=== PATIENT | female | born 1985 | race Caucasian/White ===

== ENCOUNTER 2024-01-12 10:10 | Outpatient (OUT) | payer BC, SELFPAY ==
--- NOTE | 2024-01-12 10:22 | XR_ITS ---
[address] [address] Patient Name: MARIJA LOPEZ MRN: [id number] date: 1985 Sex: F Assigned Patient Location: LAB Current Patient Location: LAB Accession/Order Number: [id number] Exam Date: 01/12/2024 10:16 Report Date: 01/12/2024 11:08 At the request of: WENDI OCAMPO Procedure: XR chest 2V EXAM: XR chest 2V HISTORY: Acute Cough R05.1 COMPARISON: None. TECHNIQUE: PA and lateral views of the chest. FINDINGS: The cardiomediastinal silhouette is normal. No focal consolidation is identified. There is no pneumothorax. No pleural effusion is noted. The osseous structures are intact. XR/XR chest 2V IMPRESSION: No acute cardiopulmonary process. Electronically authenticated by: STEVE PERRY Date: 01/12/2024 11:08
== END 2024-01-12 10:11 | disposition home or self-care (01) ==
LOC: LAB 10:11
PROVIDERS: PCP Family Medicine; Visit Provider Family Medicine
DX: R05.1 Acute cough (principal)
CPT/HCPCS: 71046

== ENCOUNTER 2025-03-14 19:50 | Outpatient (REF) | payer BC, SELFPAY ==
[2025-03-17 23:08] LABS: Age Gdln ACOG Testing Note (.); HPV Aptima Negative (Negative); IGP, Aptima HPV, rfx 16/18,45 Note (.)
== END 2025-03-14 19:51 | disposition home or self-care (01) ==
LOC: LAB 19:50
PROVIDERS: PCP Family Medicine; Visit Provider Obstetrics & Gynecology
DX: Z01.419 Encounter for gynecological examination (general) (routine) without abnormal findings (principal)
CPT/HCPCS: 87624; 88175

== ENCOUNTER 2025-09-13 08:21 | Outpatient (OUT) | payer BC, SELFPAY ==
--- OUTSIDE RECORDS SUMMARY | 2024-07-14 05:00 | XMS_ITS ---
Author Organization [facility] in [place] Address [address] [place] [address] Care Team Providers Care Scenic Designer Name Role Phone David Tello Primary Care Provider Katarzyna Figueroa Unavailable [phone] REASON FOR VISIT 2 week follow up Encounters Encounter Location Date Provider Diagnosis [facility] (PODIATRY) [address] [place] [address] [place] [address] 07/14/2024 Katarzyna Figueroa Plan Of Treatment No Information Progress Notes * Cecile LOPEZ BDOB:[birth year] (39 yo F)Acc No.[id number]:07/14/2024 UNLOCKED PROGRESS NOTE Follow Up Patient: Cecile LAMAS :?SHELBI JarrellCDOB:1985???Age:38 Y ???Sex:FemaleDate:07/14/2024hone:[phone]:[id number] [id number]:David Tello Subjective: * Chief Complaints: * 1 . 2 week follow up. * Medical History: Objective: * Vitals: Assessment: Plan: * Treatment: * * Electronic signature of Katarzyna Figueroa PA-C on 09/13/2025 at 08:24 AM EDTSign off status: PendingVisit Status:?CANC (Cancelled) * Provider: Yong Figueroa PA-C Date: 0 07/14/2024 Generated for Printing/Faxing/eTransmitting on:?09/13/2025 08:24 AM EDT
--- OUTSIDE RECORDS SUMMARY | 2025-09-11 10:30 | XMS_ITS | Encounter Summary ---
Author Organization [facility] Address [address] [place] [address] Care Team Providers Care Hansard Reporter Name Role Phone Nathen Tello MD Primary Care Provider [phone] Reason for Visit * ReasonCommentsSuspicious Skin Lesion Encounter Details DateTypeDepartmentCare Team (Latest Contact Info)Bppdgpplqey98/20/2025 10:30 AM EDTOffice Visit [facility] [address] [facility] [address] [place] [address] Laina Tristan PA [address] [facility] [address] [place] [address] Neoplasm of unspecified behavior of bone, soft tissue, and skin (Primary Dx); Inflamed seborrheic keratosis Social History Tobacco UseTypesPacks/DayYears UsedDateSmoking Tobacco: FormerCigarettes Smokeless Tobacco: NeverAlcohol UseStandard Drinks/WeekCommentsYes0 (1 standard drink = 0.6 oz pure alcohol)occasionalCommentsNoSex and Gender InformationValueDate RecordedSex Assigned at WooawVthxtl97/23/2023 11:07 AM EDT Legal VdeDzjhjp84/15/2023 11:34 PM EDTGender CfzvpcpuZihgzi46/23/2023 11:07 AM EDTSexual QbhxpcrgfcsKfusovto18/23/2023 11:07 AM EDTdocumented as of this encounter Progress Notes * DARIN Saeed - 09/11/2025 10:30 AM EDT Images from the original note were not included. Lesions: Location: face Duration: years Quality: itchy Associated symptoms: non-healing Treatments: none Established patient All pertinent medical history, medications, and allergies were reviewed. General Exam: alert, oriented to person, place, and time, normal affect, well appearing Unaccompanied A focused exam completed based on patient reported problems, see below: Skin Exam 1. INFLAMED SEBORRHEIC KERATOSIS (3) Left Anterior Neck, Left Parotid Area, Left Submandibular Area Revere and brown stuck on verrucous scaly papule with surrounding erythema The patient was informed that symptomatic seborrheic keratoses are benign growths that become inflamed, itchy, tender, traumatized, caught on clothing, or bleed. Symptomatic lesions can be treated with cryotherapy or curretage. Thicker lesions treated with cryotherapy may require more than one treatment. The patient was instructed to notify the office if abnormal redness or tenderness develops atthe treatment site. Cryotherapy today, see procedure note. Diagnosis: Inflamed seborrheic keratosis Indication: Inflamed Consent: Verbal consent was obtained and risks were discussed, including, but not limited to risks of scarring, darker or intake coordinator pigmentary changes, recurrence, incomplete removal and infection. Method: Liquid nitrogen was used to treat the lesion(s) with two 5-10 second freeze-thaw cycles Number of lesions treated: 3 Post-procedure instructions: Instructions were given orally and in writing. The office will be contacted if the lesion fails to resolve despite treatment, or if a side effect develops such as abnormal crusting, scabbing, redness or tenderness - Cryotherapy, skin lesion - Left Anterior Neck, Left Parotid Area, Left Submandibular Area 2. NEOPLASM OF UNSPECIFIED BEHAVIOR OF BONE, SOFT TISSUE, AND SKIN Right Anterior Lobule Pigmented papule - Lesion biopsy Type of biopsy: tangential Informed consent: discussed and consent obtained Informed consent comment: The risks and benefits of the biopsy were discussed. Risks include but are not limited to bleeding, infection, scarring, pain, and nerve damage. An opportunity to ask questions prior to the procedure was permitted and all questions were answered. Patient was prepped and draped in usual sterile fashion: area cleansed with alcohol. Anesthesia: the lesion was anesthetized in a standard fashion Anesthetic: 1% lidocaine w/ epinephrine 1-100,000 buffered w/ 8.4% NaHCO3 Instrument used: DermaBlade Hemostasis achieved with: electrodesiccation Outcome: patient tolerated procedure well Outcome comment: The specimen was placed in a prelabeled formalin container to be sent for pathology Post-procedure details: sterile dressing applied and wound care instructions given Post-procedure details comment: Emphasized need to contact clinic for any signs of infection, uncontrollable bleeding, or complications. Dressing type: bandage Additional details: Photo taken Amount of lidocaine used: 0.5 cc Specimen A - Dermatopathology exam Differential Diagnosis: Inflamed IDN Check Margins: No Size of lesion: 0.5 x 0.5 cm Diagnosis: (D49.2) Neoplasm of unspecified behavior of bone, soft tissue, and skin Plan: Lesion biopsy Biopsy today, see procedure note. Next Visit: prn for any new/changing lesions documented in this encounter Plan of Treatment NameTypePriorityAssociated DiagnosesOrder ScheduleDermatopathology examPathology and CytologyTimed Neoplasm of unspecified behavior of bone, soft tissue, and skin Release Upon Ordering for 1 Occurrences starting 09/11/2025documented as of this encounter Procedures Procedure NamePriorityDate/TimeAssociated DiagnosisCommentsSKIN / NAIL BIOPSY Rmcikac2309/11/2025 10:40 AM EDT Neoplasm of unspecified behavior of bone, soft tissue, and skin CRYOTHERAPY SKIN YDRLEMYjgucng48/20/2025 10:38 AM EDT Inflamed seborrheic keratosis documented in this encounter Results * Lesion biopsy (09/11/2025 10:40 AM EDT) Narrative Ariana Weiner MA - 09/11/2025 10:40 AM EDT Type of biopsy: tangential Informed consent: discussed and consent obtained ?? Informed consent comment: ??The risks and benefits of the biopsy were discussed. Risks include but are not limited to bleeding, infection, scarring, pain, and nerve damage. An opportunity to ask questions prior to the procedure was permitted and all questions were answered. Patient was prepped and draped in usual sterile fashion: area cleansed with alcohol. Anesthesia: the lesion was anesthetized in a standard fashion ?? Anesthetic: ??1% lidocaine w/ epinephrine 1-100,000 buffered w/ 8.4% NaHCO3 Instrument used: DermaBlade ?? Hemostasis achieved with: electrodesiccation ?? Outcome: patient tolerated procedure well ?? Outcome comment: ??The specimen was placed in a prelabeled formalin container to be sent for pathology Post-procedure details: sterile dressing applied and wound care instructions given ?? Post-procedure details comment: ??Emphasized need to contact clinic for any signs of infection, uncontrollable bleeding, or complications. Dressing type: bandage ?? Additional details: ??Photo taken Amount of lidocaine used: 0.5 cc Authorizing ProviderResult TypeResult [facility] PROCEDURE ORDERABLESFinal Result * Cryotherapy, skin lesion (09/11/2025 10:38 AM EDT) Narrative Authorizing ProviderResult TypeResult [facility] PROCEDURE ORDERABLESFinal Result documented in this encounter Visit Diagnoses Diagnosis Neoplasm of unspecified behavior of bone, soft tissue, and skin- Primary Inflamed seborrheic keratosis documented in this encounter Care Teams Team MemberRelationshipSpecialtyStart DateEnd Date Nathen Tello MD [address] [place] [address] PCP - GeneralFamily Medicine04/20/25documented as of this encounter
--- OUTSIDE RECORDS SUMMARY | 2025-09-13 08:23 | XMS_ITS | CCD ---
Author Organization [facility] CliniSyma Care Team Providers Care Bakelite Molder Name Role Phone CYNDEE ., DR ZAPATA Consulting Unavailable CYNDEE ., DR ZAPATA Attending Unavailable HOY ., DR ADAME Primary Care Unavailable CYNDEE ., DR ZAPATA Admitting Unavailable IRMA II, OLI Consulting Unavailable GLADYS CABALLERO Consulting Unavailable CYNDEE ., DR ZAPATA Admitting Unavailable CYNDEE ., DR ZAPATA Attending Unavailable HOY ., DR ADAME Primary Care Unavailable CYNDEE ., DR ZAPATA Consulting Unavailable HOY ., DR ADAME Primary Care Unavailable CYNDEE ., DR ZAPATA Attending Unavailable CYNDEE ., DR ZAPATA Consulting Unavailable CYNDEE ., DR ZAPATA Admitting Unavailable YCNDEE ., DR ZAPATA Attending Unavailable CYNDEE ., DR ZAPATA Consulting Unavailable HOY ., DR ADAME Primary Care Unavailable CYNDEE ., DR ZAPATA Admitting Unavailable CYNDEE ., DR ZAPATA Attending Unavailable CYNDEE ., DR ZAPATA Consulting Unavailable HOY ., DR ADAME Primary Care Unavailable CYNDEE ., DR ZAPATA Admitting Unavailable CYNDEE ., DR ZAPATA Attending Unavailable CYNDEE ., DR ZAPATA Consulting Unavailable HOY ., DR ADAME Primary Care Unavailable CYNDEE ., DR ZAPATA Admitting Unavailable ZIEBER, DR EULA Mcelroy Consulting Unavailable CYNDEE ., DR ZAPATA Attending Unavailable KENAI, DR PEPE Sheets Consulting Unavailable HOY ., DR ADAME Primary Care Unavailable CYNDEE ., DR ZAPATA Admitting Unavailable NO FAMILY, PHYSICIAN Primary Care Provider Unava ilable Karla Koehler APRN Attending Provider Karla Koehler Attending Unavailable Karla Koehler Admitting Unavailable NO FAMILY, PHYSICIAN Primary Care Unavailable Wendi Tello MD Primary Care Provider [phone] Oli Barahona MD Primary Care Provider Wendi Tello MD Primary Care Provider [phone] Wendi Tello MD Primary Care Provider [phone] ELSY GARZA Attending BENNY Mittal Attending Unavailable ELSY GARZA Attending ARLETH Abreu Attending Unavailable Allergies Allergy ClassificationReported Allergen(s)Allergy TypeDate of OnsetReaction(s) Facility (1 source)AzithromycinDrug Jxvalzi34-58-2587[facility] ([facility] source)AzithromycinDrug Glmqowb45-09-1026LmnqldoarAultman Alliance Community Hospital Repository (11 sources)AzithromycinDrug Ztnpffx14-16-5041RP bleeding, UnknownINTERMOUNTAIN HEALTHCARE Healthcare Work Phone: Medications Current Medications MedicationDrug Class(es)DatesSig (Normalized)Sig (Original)ALPRAZolam 0.25 mg oral tablet (13 sources)BenzodiazepineStart: 26-55-6391tfaj 1 tablet by mouth in the morning, then take 1 tablet by mouth in the evening, then take 1 tablet by mouth at bedtimeALPRAZolam (Xanax) 0.25 MG tablet Indications: Anxiety and depression Take 1 tablet (0.25 mg) by mouth in the morning and 1 tablet (0.25 mg) in the evening and 1 tablet (0.25 mg) before bedtime. 30 tablet 09/04/2023 Wcqdbk23 hr buPROPion hydrochloride 150 mg extended release oral tablet (11 sources)AminoketoneStart: 38-59-8223vvJWJBetm SR (Wellbutrin SR) 150 MG 12 hr tablet Indications: Anxiety and depression Take 1 tablet (150 mg) by mouth in the morning and 1 tablet (150 mg) before bedtime. Take 1 tablet daily for 3 days , then take 1 tablet daily for 4 days. Quit smoking on day 7 and continue to take medication twice daily.. 180 tablet 1 09/04/2023 ActiveBupropion Hcl 150 mg tablet sustained-release 12 hr (2 sources)Start: 56-52-9661cvsg 1 tablet by mouth twice dailyBupropion Hcl 150 mg tablet sustained-release 12 hr Active 150 MG PO Twice daily October 0120231124:00amdoxycycline hyclate 50 mg oral capsule (2 sources)Tetracycline-class DrugStart: 04-20-2025 End: 83-57-9904ekoquozrylo (Vibramycin) 50 MG capsule Indications: Ingrown toenail , Right foot pain Take 2 capsules (100 mg) by mouth in the morning and 2 capsules (100 mg) before bedtime. Do all this for 5 days. Take with at least 8 ounces (large glass) of water, do not lie down for 30 minutes after. 20 capsule 04/20/2025 04/25/2025 ActivemetFORMIN hydrochloride 500 mg oral tablet (3 sources)Biguanide End: 41-28-9945rudLBLPVM (Glucophage) 500 MG tablet 500 mg in the morning. Take with meals. 03/14/2025 Discontinued (Discontinued by another clinician) pramipexole dihydrochloride 1 mg oral tablet (16 sources)Nonergot Dopamine AgonistStart: 37-12-5580xpbq 1 tablet by mouth once dailyPramipexole 1 mg tablet Active 1 MG PO Daily October 01, 2024 12:00am End: 84-13-7342utgcfqyfljo (Mirapex) 0.125 MG tablet 03/14/2025 Discontinued (Discontinued by another clinician) Problems Active Problems Problem ClassificationProblemDateDocumented DateEpisodic/ChronicAnxiety disorders (2 sources)Mixed anxiety and depressive disorder; Translations: [Anxiety disorder, unspecified]24-22-9389EgaqpilNoobgvamwmbrf and procreative management (1 source)Presence of (intrauterine) contraceptive device; Translations: [PRESENCE IU CONTRACEPT DEVICE]Onset: 91-37-0821JcvpxymtMvhyxvztugiyg congenital anomalies (1 source)Unicornate uterus; 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]Onset: 04-21-2023 ChronicInflammatory diseases of female pelvic organs (1 source)Inflammatory disease of cervix uteri; Translations: [INFLAMMATORY DISEASE CERVIX UTERI]Onset: 19-70-4149DxjxwrstHjxyyymkx disorders (6 sources)Irregular menstruation, unspecified; Translations: [Dysmenorrhea, unspecified]Onset: 53-97-4421LszeuilKyxfefqhd of unspecified nature or uncertain behavior (1 source)Neoplastic disease; Translations: [Neoplasm of unspecified behavior of bone, soft tissue, and skin]58-00-5562XcivolhbBbbfr connective tissue disease (4 sources)Pain in right foot; Translations: [Pain in right foot]03-14-2025 EpisodicOther female genital disorders (1 source)Unspecified dyspareunia; Translations: [UNSPECIFIED DYSPAREUNIA]Onset: 33-98-5874KhslyijPfyqn hereditary and degenerative nervous system conditions (4 sources)Restless legs syndrome; Translations: [RESTLESS LEGS SYNDROME]Onset: 07-69-0050VrgiuerWejoq lower respiratory disease (2 sources)Cough; Translations: [Cough]91-77-6531KbmrysfdBaclv screening for suspected conditions (not mental disorders or infectious disease) (6 sources)Encounter for screening for malignant neoplasm of cervix; Translations: [Patient encounter status]Onset: 86-52-7628AtwumcmkJkfzn skin disorders (4 sources)Ingrowing toenail; Translations: [Ingrowing nail]69-23-8071Kjlvfrwk Other skin disorders (1 source)Inflamed seborrheic keratosis; Translations: [Inflamed seborrheic keratosis]83-94-8261GfafgenrLjzznbwnb and history of mental health and substance abuse codes (1 source)Personal history of nicotine dependence; Translations: [PERSONAL HISTORY OF NICOTINE DEPEND]Onset: 31-73-4486SihbyxrhBlbccklhpzap (1 source)Cough, unspecified; Translations: [Cough, unspecified]Onset: 85-34-4370Kjuzo infection (4 sources)Disease caused by 2019-nCoV; Translations: [COVID-19]10-01-2024 Episodic Past or Other Problems Problem ClassificationProblemDateDocumented DateEpisodic/ChronicImmunizations and screening for infectious disease (1 source)Encounter for screening for human papillomavirus (HPV); Translations: [ENC SCREENING HUMAN PAPILLOMAVIRUS]Onset: 76-96-3433LsepyirqInmyg nutritional; endocrine; and metabolic disorders (1 source)Abnormal weight gain; Translations: [ABNORMAL WEIGHT GAIN]Onset: 40-82-6547HepxvmyzGskujbb cyst (2 sources)Other ovarian cyst, left side; Translations: [Other ovarian cyst, right side]Onset: 47-38-5692BmdehrkuQjbqupwz codes; unclassified (1 source)Sleep disorder, unspecified; Translations: [SLEEP DISORDER UNSPECIFIED]Onset: 83-19-2779Cddkgxhy Results Test NameValueInterpretationReference RangeFacilityCryotherapy, skin lesion Ordered By: Ariana Weiner on 82-23-5916LNVZMethodist [facility] biopsyon 09-11-2025 Type of biopsy: tangential Informed consent: discussed [...] Photo taken Amount of lidocaine used: 0.5 [facility] HealthIGP,APTIMA HPV,AGE GDLNon 55-95-3932VAE GDLN ACOG TESTINGNote.NOMS HealthcareComment on above:TESTS RESULT FLAG UNITS REF RANGE LAB Clinician Provided Cytology Information Source.............Vagina No. of containers..01 ThinPrep Vial Age Algo ACOG Valarie... 28 FLAG LEGEND: L-Low Normal,H-High Normal,LL-Alert Low,HH-Alert High <-Panic Low,>-Panic High,A-Abnormal,AA-Critical Abnormal Performed at: 01 =[address] [phone] Jaqueline Vila MD, HPV APTIMANegativeNegativeNOMS HealthcareComment on above:This nucleic acid amplification test detects fourteen high- risk HPV types (16,18,31,33,35,39,45,51,52,56,58,59,66,68) without differentiation. Performed at: =[address] [id number] Cage Maker: Jaqueline Vila MD, Phone: [phone] Performed at: [address] [id number] Cage Maker: Jaqueline Vila MD, Phone: [phone] IGP, APTIMA HPV, RFX 16/18,45Note.NOMS HealthcareComment on above:TESTS RESULT FLAG UNITS REF RANGE LAB DIAGNOSIS: 02 NEGATIVE FOR INTRAEPITHELIAL LESION OR MALIGNANCY. Specimen adequacy: 02 Satisfactory for evaluation. Performed by: 02 [place], Ear Pull Machine Operator (ASCP) . 02 Note: Note 02 The Pap smear is a screening test designed to aid in the detection of premalignant and malignant conditions of the uterine cervix. It is not a diagnostic procedure and should not be used as the sole means of detecting cervical cancer. Both false-positive and false-negative reports do occur. Test Methodology: Note 02 This liquid based ThinPrep(R) pap test was screened with the use of an image guided system. HPV Genotype Reflex Note 02 Criteria not met, HPV Genotype not performed. FLAG LEGEND: L-Low Normal,H-High Normal,LL-Alert Low,HH-Alert High <-Panic Low,>-Panic High,A-Abnormal,AA-Critical Abnormal Performed at: [address] [facility] [address] [phone] Jaqueline Vila MD, [facility] CLINISYNCNOMS HealthcareCOVID Cepheidon 13-39-0089OTIH-CoV-2 (COVID-19) RNA MATEO+probe Ql (Unsp spec)COVID CepheidAultman Alliance Community HospitalLaboratory - Microbiology and Antimicrobial susceptibilityon 22-44-6662TYCS-CoV-2 (COVID- 19) RNA MATEO+probe Ql (Unsp spec)PositiveAultman Alliance Community HospitalNo Panel Informationon 37-35-3692QEP Influenza A (PCR)NegativeAultman Alliance Community HospitalPO Influenza B (PCR)NegativeAultman Alliance Community HospitalX- ray reportOrdered By: Jairon Butler on 30-87-0452Zbeuz reportBLUFFTON [place] [address] XRay Report Signed Patient: Cecile Torres MR#: [id number] : 1985 Acct:[id number] Age/Sex: 38 / F ADM Date: 4 Loc: XDUCLY Room: Type: [facility] Attending Dr: Karla Koehler APRN Copies to: Karla Koehler APRN~ Ordering Provider: Karla Koehler APRN Date of Service: 10/01/24 XR/XR chest 2V*: COUGH XR chest 2V* 10/01/2024 12:27 PM SIGNS AND SYMPTOMS: Dry cough, low-grade fever, chest congestion PROTOCOL: Frontal and lateral radiograph of the chest COMPARISON: None FINDINGS: The trachea is midline. The heart and mediastinal structures are within normal limits. The lung parenchyma is clear. The bony thorax is intact. There is a dextro convex curvature of the thoracic spine. XR/XR chest 2V* IMPRESSION: No acute cardiopulmonary pathology. Impression dictated by: Jairon Butler M.D.10/01/2024 12:40 PM Dictation Location: [facility]--17 Transcribed By: NISREEN 10/01/24 1240 Dictated By: Jairon Butler II, MD 10/01/24 1239 Signed By: 10/01/24 1240 [facility] Work Phone: XR chest 2V*on 03-43-3512CH chest 2V*[facility] Main [facility] [address] [place] [address] XRay Report Signed Patient: Cecile Torres MR#: [id number] : 1985 Acct:[id number] Age/Sex: 38 / F ADM Date: 10/01/24 [facility] Room: Type: [facility] Attending Dr: Karla Koehler VICE PRESIDENT SAFETY Copies to: Karla Koehler APRN Ordering Provider: Karla Koehler APRN Date of Service: 10/01/24 XR/XR chest 2V*: COUGH XR chest 2V* 10/01/2024 12:27 PM SIGNS AND SYMPTOMS: Dry cough, low-grade fever, chest congestion PROTOCOL: Frontal and lateral radiograph of the chest COMPARISON: None FINDINGS: The trachea is midline. The heart and mediastinal structures are within normal limits. The lung parenchyma is clear. The bony thorax is intact. There is a dextro convex curvature of the thoracic spine. XR/XR chest 2V* IMPRESSION: No acute cardiopulmonary pathology. Impression dictated by: Jairon Butler M.D.10/01/2024 12:40 PM Dictation Location: [facility]-17 Transcribed By: [facility] 10/01/24 1240 Dictated By: Jairon Butler II, MD 10/01/24 1239 Signed By: 10/01/24 [facility] Physician GroupBUAdelina 22-90-8658Cegy nitrogen [Mass/Vol]4.0 mg/dLCritically low7.0-18.0The [facility] Md, Cancer CenterComment on above: Performed By: #### CREA, BUN #### [facility] Laboratory [address] [address] [address] Kylee Allen AUTO DIFFon 72-22-2355ZYVZ #0.0 103/ulNormal0.0-0.1The [facility], Md, Cancer CenterComment on above:Performed By: #### [id number] #### [facility] [address] [address] [address] Kylee GarnerBasophils/100 WBC (Bld)0.4 %Normal0.2-2.0The [facility] Comment on above:Performed By: #### [id number] #### [facility] [address] [address] [address] Kylee Valle #0.1 103/ulNormal0.0-0.7The [facility] Md, Cancer CenterComment on above: Performed By: #### [id number] #### [facility] [address] [address] [address] Kylee Ballesterososinophils/100 WBC (Bld)1.8 %Normal0.9-7.0The [facility] Comment on above:Performed By: #### [id number] #### [facility] [address] [address] [address] Kylee Ballesterosrythrocyte distribution width (RBC) [Ratio]12.9 %Cobeju94.0-15.0 The [facility] Md, Cancer CenterComment on above:Performed By: #### [id number] #### [facility] [address] [place] [address] Dr. Kylee GarnerHematocrit (Bld) [Volume fraction]28.9 %Critically low36.0-48.0 The Washington HospitalComment on above:Performed By: #### [id number] #### [facility] [address] [place] [address] Dr. Kylee GarnerHemoglobin (Bld) [Mass/Vol]9.5 g/dLCritically low12.0-16.0The [facility], Cancer CenterComment on above:Performed By: #### [id number] #### [facility] [address] [place] [address] Dr. Kylee Brandon #0.02 10e3/ulNormal0.00-0.03The [facility], Cancer CenterComment on above:Performed By: #### [id number] #### [facility] [address] [place] [address] Dr. Kylee Brandon %0.3 %Normal0.0-0.5The [facility], Cancer CenterComment on above: Performed By: #### [id number] #### [facility] [address] [place] [address] Dr. Kylee Nova #1.9 103/ulNormal1.2-3.8The [facility], Cancer CenterComment on above:Performed By: #### [id number] #### [facility] [address] [place] [address] Dr. Kylee Mcdowellhocytes/100 WBC (Bld)23.2 %Uysdjl19.5-60.0The [facility], Cancer CenterComment on above:Performed By: #### [id number] #### [facility] [address] [place] [address] Dr. Kylee HoangUAL DIFF REQNONormalThe [facility], Cancer CenterComment on above: Performed By: #### [id number] #### [facility] [address] [place] [address] Dr. Kylee Walls (RBC) [Entitic mass]30.3 afTqpium39.7-34.0The [facility], Cancer CenterComment on above:Performed By: #### [id number] #### [facility] [address] [place] [address] Dr. Kylee Gamboa (RBC) [Mass/Vol]32.9 g/xVPhhzxo66.9-35.2The [facility], Cancer CenterComment on above:Performed By: #### [id number] #### [facility] [address] [place] [address] Dr. Kylee Giordano (RBC) [Entitic vol]92.0 uEQbnkxe46.0-99.0The [facility], Cancer CenterComment on above:Performed By: #### [id number] #### [facility] [address] [place] [address] Dr. Kylee Tristan #0.6 103/ulNormal0.3-0.8The [facility] Md, Cancer CenterComment on above:Performed By: #### [id number] #### [facility] [address] [place] [address] Dr. Kylee Franklinocytes/100 WBC (Bld)7.3 %Normal1.7-12.0The [facility] Comment on above:Performed By: #### [id number] #### [facility] [address] [place] [address] Dr. Kylee Osborne #5.4 103/ulNormal1.4-6.5The [facility], Cancer CenterComment on above:Performed By: #### [id number] #### [facility] [address] [place] [address] Dr. Kylee Vidalutrophils/100 WBC (Bld)67.0 %Ynybgy59.0-75.0The [facility], Cancer CenterComment on above:Performed By: #### [id number] #### [facility] [address] [place] [address] Dr. Kylee Ariaslet mean volume (Bld) [Entitic vol]10.0 fLNormal9.5-13.5The [facility]ron Campusment on above:Performed By: #### [id number] #### [facility] [address] [place] [address] Dr. Kylee GarnerPLT172 103/yhFeckst848-590Miz [facility], [facility] CenterComment on above: Performed By: #### [id number] #### [facility] [address] [address] [address] Kylee GarnerRBC3.14 106/ulCritically low4.20-5.40[facility] on above:Performed By: #### [id number] #### [facility] [address] [address] [address] Kylee GarnerWBC8.0 103/ulNormal4.0-11.0The [facility], Cancer CenterComment on above: Performed By: #### [id number] #### [facility] [address] [place] [address] Dr. Kylee GarnerCREATININEon 78-80-3384Tgcxejjgbd [Mass/Vol]0.80 mg/dLNormal 0.55-1.02The [facility] on above:Performed By: #### CREA, BUN #### [facility] [address] [place] [address] Dr. Pichardo ChangEGFR-AF SALVADOREAN>60Normal>=60The [facility] on above:Performed By: #### CREA, BUN #### [facility] [address] [place] [address] Dr. Kylee BallesterosGFR-NON AF SALVADOREAN>60Normal>=60The [facility] on above:Performed By: #### CREA, BUN #### [facility] [address] [place] [address] Dr. Kylee GarnerPOINT OF CARE GLUCOSEon 07-54-1135Tchhzxy [Mass/Vol]81 mg/dL Xfxzja07-070Dbs [facility] on above:Performed By: #### POCGLUC #### [facility] [address] [place] [address] Dr. Kylee GarnerPREAleksandar QUANT HCGon 96-98-0509BEN QUANT2 mIU/mLNormalToledo HospitalCommunson healthcare [facility] on above:Performed By: #### ESTRADI #### [facility] [address] [place] [address] Dr. Kylee Edge RANGESEE BELOWNoalThe [facility], Md, Cancer CenterComment on above: Result Comment: 5-50 0.2-1 WEEK 50-500 1-2 WEEKS 100-5,000 2-3 WEEKS 500-10,000 3-4 WEEKS 1,000-50,000 4-5 WEEKS 10,000-100,000 5-6 WEEKS 15,000-200,000 6-8 WEEKS 10,000-100,000 2-3 MONTHSPerformed By: #### ESTRADI #### [facility] [address] [place] [address] Dr. Kylee GarnerTYPE AND SCREENon 11-58-7747AKWA AND SCREENNegativeNormalThTriHealth Bethesda North HospitalComment on above:Performed By: #### [id number] #### [facility] [address] [place] [address] Dr. Kylee GandaraC AUTO DIFFon 39-41-6038SCOI #0.0 103/ulNormal0.0-0.1[facility]edo HospitalComment on above:Performed By: #### ESTRADI #### [facility] [address] [place] [address] Dr. Kylee GarnerBasophils/100 WBC (Bld)0.4 %Normal0.2-2.0[facility] Comment on above:Performed By: #### ESTRADI #### [facility] [address] [place] [address] Dr. Kylee Valle #0.1 103/ulNormal0.0-0.7ThTriHealth Bethesda North HospitalComment on above: Performed By: #### ESTRADI #### [facility] [address] [place] [address] Dr. Kylee Ballesterososinophils/100 WBC (Bld)1.1 %Normal0.9-7.0[facility] Comment on above:Performed By: #### ESTRADI #### [facility] [address] [place] [address] Dr. Kylee Ballesterosrythrocyte distribution width (RBC) [Ratio]12.6 %Ywpibz86.0-15.0 [facility] HospitalComment on above:Performed By: #### ESTRADI #### [facility] [address] [place] [address] Dr. Kylee Pachecoatocrit (Bld) [Volume fraction]37.4 %Dqdfbt06.0-48.0The [facility], Cancer CenterComment on above:Performed By: #### ESTRADI #### [facility] [address] [place] [address] Dr. Kylee GarnerHemoglobin (Bld) [Mass/Vol]12.9 g/kHIofclg48.0-16.0The [facility], Cancer CenterComment on above:Performed By: #### ESTRADI #### [facility] [address] [place] [address] Dr. Kylee Brandon #0.02 10e3/ulNormal0.00-0.03The [facility], Cancer CenterComment on above:Performed By: #### ESTRADI #### [facility] [address] [place] [address] Dr. Kylee Brandon %0.2 %Normal0.0-0.5The [facility], Cancer CenterComment on above: Performed By: #### ESTRADI #### [facility] [address] [place] [address] Dr. Kylee Nova #1.7 103/ulNormal1.2-3.8The [facility], Cancer CenterComment on above:Performed By: #### ESTRADI #### [facility] [address] [place] [address] Dr. Kylee Mcmphocytes/100 WBC (Bld)20.3 %Critically low20.5-60.0The [facility], Cancer CenterComment on above:Performed By: #### ESTRADI #### [facility] [address] [place] [address] Dr. Kylee GarnerMANUAL DIFF REQNONormalThe [facility], Cancer CenterComment on above: Performed By: #### ESTRADI #### [facility] [address] [place] [address] Dr. Kylee Walls (RBC) [Entitic mass]30.8 ygLaeidf54.7-34.0The [facility], Cancer CenterComment on above:Performed By: #### ESTRADI #### [facility] [address] [address] [address] Kylee GamboaHC (RBC) [Mass/Vol]34.5 g/yWVamjnm34.9-35.2The [facility], Cancer CenterComment on above:Performed By: #### ESTRADI #### [facility] [address] [address] [address] Kylee GamboaV (RBC) [Entitic vol]89.3 zOBjmgzs50.0-99.0The [facility] HospitalComment on above:Performed By: #### ESTRADI #### [facility] [address] [place] [address] Dr. Kylee Tristan #0.7 103/ulNormal0.3-0.8The [facility] Md, Cancer CenterComment on above:Performed By: #### ESTRADI #### [facility] [address] [place] [address] Dr. Kylee Franklinocytes/100 WBC (Bld)8.3 %Normal1.7-12.0The [facility] Comment on above:Performed By: #### ESTRADI #### [facility] [address] [place] [address] Dr. Kylee Osborne #5.7 103/ulNormal1.4-6.5The [facility], Cancer CenterComment on above:Performed By: #### ESTRADI #### [facility] [address] [place] [address] Dr. Kylee Vidalutrophils/100 WBC (Bld)69.7 %Ajzkuc95.0-75.0The [facility], Cancer CenterComment on above:Performed By: #### ESTRADI #### [facility] [address] [place] [address] Dr. Kylee Ariaslet mean volume (Bld) [Entitic vol]9.9 fLNormal9.5-13.5The [facility], Cancer CenterComment on above:Performed By: #### ESTRADI #### [facility] [address] [place] [address] Dr. Kylee GarnerPLT229 103/uhVetyfe228-043Nzq [facility] Campusment on above: Performed By: #### ESTRADI #### [facility] [address] [place] [address] Dr. Kylee GarnerRBC4.19 106/ulCritically low4.20-5.40The [facility] Cancer CenterCommunson healthcare [facility] on above:Performed By: #### ESTRADI #### [facility] [address] [place] [address] Dr. Kylee GarnerWBC8.2 103/ulNormal4.0-11.0The [facility], Cancer CenterComment on above: Performed By: #### ESTRADI #### [facility] [address] [place] [address] Dr. Kylee Guidry PROFILEon 32-47-6393Hgyrjvf [Mass/Vol]3.9 g/dLNormal3.4-5.0 The [facility], Cancer CenterComment on above:Performed By: #### [id number] #### [facility] [address] [place] [address] Dr. Kylee GarnerAlbumin/Globulin [Mass ratio]1.1 {ratio}NormalThe [facility] CenterCommunson [facility] on above:Performed By: #### [id number] #### [facility] [address] [place] [address] Dr. Kylee Cardoso [Catalytic activity/Vol]62 U/WCxjuie87-799Con [facility] on above:Performed By: #### [id number] #### [facility] [address] [place] [address] Dr. Kylee Cooley [Catalytic activity/Vol]20 U/FIadvxw48-20Mwz [facility] on above:Performed By: #### [id number] #### [facility] [address] [place] [address] Dr. Kylee Hernandez [Catalytic activity/Vol]14 U/LCritically ldt14-17Hrb [facility] on above:Performed By: #### [id number] #### [facility] [address] [place] [address] Dr. Kylee Corea, CONJUGATED0.1 mg/dLNormal0.0-0.2[facility] Comment on above:Performed By: #### [id number] #### [facility] [address] [place] [address] Dr. Kylee GarnerBilirubin [Mass/Vol]0.4 mg/dLNormal0.2-1.0[facility] Comment on above:Performed By: #### [id number] #### [facility] [address] [place] [address] Dr. Kylee GarnerGlobulin (S) [Mass/Vol]3.7 g/dLNormalThe [facility], Cancer CenterComment on above:Performed By: #### [id number] #### [facility] [address] [place] [address] Dr. Kylee GarnerProtein [Mass/Vol]7.6 g/dLNormal6.4-8.2[facility] Comment on above:Performed By: #### [id number] #### [facility] [address] [place] [address] Dr. Kylee GarnerPROF CHEM 8 (BAS METB)on 45-30-1404Xnloo gap [Moles/Vol]13.5 mmol/LNormalToledo HospitalComment on above:Performed By: #### [id number] #### [facility] [address] [place] [address] Dr. Kylee GarnerCalcium [Mass/Vol]9.0 mg/dLNormal8.5-10.1[facility] Comment on above:Performed By: #### [id number] #### [facility] [address] [place] [address] Dr. Kylee GarnerChloride [Moles/Vol]104 mmol/CRfxydd18-916PavToledo Hospital Comment on above:Performed By: #### [id number] #### [facility] [address] [place] [address] Dr. Kylee GarnerCO2 [Moles/Vol]25.7 mmol/XXpcuku13.0-32.0[facility] Comment on above:Performed By: #### [id number] #### [facility] [address] [address] [address] Kylee GarnerCreatinine [Mass/Vol]0.79 mg/dLNormal0.55-1.02The [facility], Cancer CenterComment on above:Performed By: #### [id number] #### [facility] [address] [address] [address] Kylee BallesterosGFR-AF SALVADOREAN>60Normal>=60The [facility], Cancer CenterComment on above:Performed By: #### [id number] #### [facility] [address] [address] [address] Kylee BallesterosGFR-NON AF SALVADOREAN>60Normal>=60The [facility], Cancer CenterComment on above:Performed By: #### [id number] #### [facility] [address] [place] [address] Dr. Kylee GarnerGlucose [Mass/Vol]81 mg/fAPgccal73-268Ncg [facility] Comment on above:Performed By: #### [id number] #### [facility] [address] [address] [address] Kylee GarnerPotassium [Moles/Vol]4.2 mmol/LNormal3.5-5.1The [facility] Comment on above:Performed By: #### [id number] #### [facility] [address] [place] [address] Dr. Kylee GarnerSodium [Moles/Vol]139 mmol/KTcibnx075-377Gab [facility] Comment on above:Performed By: #### [id number] #### [facility] [address] [address] [address] Kylee GarnerUrea nitrogen [Mass/Vol]11.0 mg/dLNormal7.0-18.0The [facility], Cancer CenterComment on above:Performed By: #### [id number] #### [facility] [address] [address] [address] Kylee GarnerUrea nitrogen/Creatinine [Mass ratio]13.9 mg/mgNormalThe [facility], Cancer CenterComment on above:Performed By: #### [id number] #### [facility] [address] [place] [address] Dr. Kylee SeayIMEon 35-88-5157MOG Coag (PPP) [Relative time]0.94 {INR} NormalThe [facility], Cancer CenterComment on above:Performed By: #### PTT, PT #### [facility] Laboratory [address] [place] [address] Dr. Kylee Sheldon [facility] HEALTH SYSTEMSSEE BELOWPike Community HospitalComment on above:Result Comment: DESIRED INR: 2.0 - 3.0 CONDITIONS NOT LISTED BELOW 2.5 - 3.5 FOR PROSTHETIC HEART VALVE REPLACEMENT 2.5 - 3.5 RECURRENT THROMBOSIS Performed By: #### PTT, PT #### [facility] [address] [place] [address] Dr. Kylee GarnerPT Coag (PPP) [Time]10.0 sNormal9.0-11.6The [facility] Comment on above:Performed By: #### PTT, PT #### [facility] [address] [place] [address] Dr. Kylee Scott 31-39-0843sOJP Coag (Bld) [Time]28.2 nOqduir98.3-36.2[facility] HospitalComment on above:Performed By: #### PTT, PT #### [facility] [address] [place] [address] Dr. Kylee Aden SERUMon 74-15-1768Woxmgletfzeocdkzoqegaa (DHEA)141 ng/dL Szrbyn01-127MkrToledo HospitalComment on above:Result Comment: Age 1 - 5 years 0 - 67 6 - 7 years 0 - 110 8 - 10 years 0 - 185 11 - 12 years 0 - 201 13 - 14 years 0 - 318 15 - 16 years 39 - 481 17 - 19 years 40 - 491 >19 years 31 - 701Performed By: #### ESTRADI #### [facility] [address] [place] [address] Dr. Kylee Tenorio ACOG PANEL 2: 30 to 63on 07-15-2022..NormalThe [facility], Cancer CenterComment on above:Result Comment: Performed at: WBPerformed By: #### [id number] #### [facility] [address] [place] [address] Dr. Kylee GarnerAge Gdln ACOG Qlxwfzh04-80GdmawlZlcPike Community HospitalCommunson healthcare [facility] on above:Performed By: #### [id number] #### [facility] [address] [place] [address] Dr. Kylee GarnerDIAGNOSIS:CommentLima City Hospital on above: Result Comment: NEGATIVE FOR INTRAEPITHELIAL LESION OR MALIGNANCY. Performed at: WBPerformed By: #### [id number] #### [facility] [address] [place] [address] Dr. Kylee GarnerHPV AptimaNegativeNormalNegativeAvita Health System on above:Result Comment: This nucleic acid amplification test detects fourteen high-risk HPV types (16,18,31,33,35,39,45,51,52,56,58,59,66,68) without differentiation. Performed at: =GPerformed By: #### [id number] #### [facility] [address] [place] [address] Dr. Kylee GarnerMethodology:CTIMLima City Hospital on above: Result Comment: The Thin Prep(R) Supervisor [employer] was unable to read this specimen. Therefore a manual review was performed. Performed at: WBPerformed By: #### [id number] #### [facility] [address] [place] [address] Dr. Kylee GarnerNote:CommentLima City Hospital on above:Result Comment: The Pap smear is a screening test designed to aid in the detection of premalignant and malignant conditions of the uterine cervix. It is not a diagnostic procedure and should not be used as the sole means of detecting cervical cancer. Both false-positive and false-negative reports do occur. . Performed at: WBPerformed By: #### [id number] #### [facility] [address] [place] [address] Dr. Kylee GarnerPerformed by:CommentLima City Hospital on above: Result Comment: Ana Rosa Goldberg, Solar Photovoltaic Installer (ASCP) Performed at: WBPerformed By: #### [id number] #### [facility] [address] [address] [address] Kylee Andrewsimejairon adequacy:CommentNormalThe [facility], Cancer CenterComment on above:Result Comment: Satisfactory for evaluation. Endocervical and/or squamous metaplastic cells (endocervical component) are present. Performed at: WBPerformed By: #### [id number] #### [facility] [address] [address] [address] Kylee GarnerUS PELVIS AND TRANSVAGon 66-10-4235CL PELVIS AND TRANSVAG EXAMINATION: US PELVIS AND TRANSVAG HISTORY: Irregular periods COMPARISON: No relevant comparison available. FINDINGS: Transabdominal and transvaginal images The uterus is normal in size, contour and echotexture. Anteflexed, measuring 9.5 x 4.6 x 4.1 cm. The endometrium measures 8 mm, normal. The right ovary measures 3.7 x 2.5 x 2.7 cm. Normal color Doppler flow. Normal resistive index of 0.51. Area of anechoic echogenicity measuring 2.6 x 2.3 x 2.4 cm. The left ovary measures 4.1 x 2.5 2.8 cm. Normal color Doppler flow. Normal resistive index of 0.55. Area of anechoic echogenicity measuring 2.2 x 2.1 x 2.0 cm. No free fluid IMPRESSION: 2.6 cm right and 2.2 cm left ovarian simple cysts Electronically authenticated by: PEPE ROMO Date: 2022-07-13 08:15NormalToledo HospitalDHEA-SULFATEon 56-51-2148GHDB-Efviqsa411.0 ug/dLNormal 57.3-279.2The [facility], Cancer CenterComment on above:Performed By: #### DHEASUL #### [facility] Laboratory [address] [place] [address] Dr. Pichardo ChangESTRADIOLon 25-19-0701Sihjqtrzc860.0 pg/mLNormalToledo HospitalComment on above:Result Comment: Adult Female: Follicular phase 12.5 - 166.0 Ovulation phase 85.8 - 498.0 Luteal phase 43.8 - 211.0 Postmenopausal <6.0 - 54.7 1st trimester 215.0 - >4300.0 Manpreet ECLIA methodologyPerformed By: #### ESTRADI #### [facility] [address] [place] [address] Dr. Kylee Goldman 83-11-6197BCL7.2 mIU/mLNormalToledo HospitalComment on above:Result Comment: Adult Female: Follicular phase 3.5 - 12.5 Ovulation phase 4.7 - 21.5 Luteal phase 1.7 - 7.7 Postmenopausal 25.8 - 134.8Performed By: #### LBCFSH #### [facility] [address] [place] [address] Dr. Kylee GarnerLUTEINIZING HORMONE (LH)on 92-70-6698UD8.6 mIU/mLNormalToledo HospitalComment on above:Result Comment: Adult Female: Follicular phase 2.4 - 12.6 Ovulation phase 14.0 - 95.6 Luteal phase 1.0 - 11.4 Postmenopausal 7.7 - 58.5Performed By: #### ESTRADI #### [facility] [address] [place] [address] Dr. Kylee GarnerPROGESTERONEon 55-78-7867Kmzfmvwdyvke0.2 ng/mLNFlower HospitalComment on above:Result Comment: Follicular phase 0.1 - 0.9 Luteal phase 1.8 - 23.9 Ovulation phase 0.1 - 12.0 First trimester 11.0 - 44.3 Second trimester 25.4 - 83.3 Third trimester 58.7 - 214.0 Postmenopausal 0.0 - 0.1Performed By: #### ESTRADI #### [facility] [address] [place] [address] Dr. Kylee GarnerCALCIUMon 65-69-7893Sfgjvnt [Mass/Vol]9.0 mg/dLNormal8.5-10.1The [facility], Cancer CenterComment on above:Performed By: #### [id number] #### [facility] Laboratory [address] [place] [address] Dr. Kylee GarnerCBC AUTO DIFFon 78-10-9632XEZI #0.0 103/ulNormal0.0-0.1The [facility], Cancer CenterComment on above:Performed By: #### ESTRADI #### [facility] [address] [place] [address] Dr. Kylee GarnerBasophils/100 WBC (Bld)0.4 %Normal0.2-2.0The [facility] Comment on above:Performed By: #### ESTRADI #### [facility] [address] [place] [address] Dr. Kylee Valle #0.1 103/ulNormal0.0-0.7The [facility], Cancer CenterComment on above: Performed By: #### ESTRADI #### [facility] [address] [place] [address] Dr. Kylee Ballesterososinophils/100 WBC (Bld)0.9 %Normal0.9-7.0The [facility] Comment on above:Performed By: #### ESTRADI #### [facility] [address] [place] [address] Dr. Kylee Ballesterosrythrocyte distribution width (RBC) [Ratio]12.7 %Coaqcl43.0-15.0 The [facility], Cancer CenterComment on above:Performed By: #### ESTRADI #### [facility] [address] [place] [address] Dr. Kylee GarnerHematocrit (Bld) [Volume fraction]39.6 %Zwtogy16.0-48.0The [facility], Cancer CenterComment on above:Performed By: #### ESTRADI #### [facility] [address] [place] [address] Dr. Kylee GarnerHemoglobin (Bld) [Mass/Vol]13.2 g/lDVmoorr55.0-16.0The [facility], Cancer CenterComment on above:Performed By: #### ESTRADI #### [facility] [address] [place] [address] Dr. Kylee Brandon #0.03 10e3/ulNormal0.00-0.03The [facility], Cancer CenterComment on above:Performed By: #### ESTRADI #### [facility] [address] [place] [address] Dr. Kylee Brandon %0.3 %Normal0.0-0.5The [facility], Cancer CenterComment on above: Performed By: #### ESTRADI #### [facility] [address] [place] [address] Dr. Kylee Nova #2.5 103/ulNormal1.2-3.8The [facility], Cancer CenterComment on above:Performed By: #### ESTRADI #### [facility] [address] [place] [address] Dr. Kylee Mcdowellhocytes/100 WBC (Bld)25.3 %Wsxges23.5-60.0The [facility] CenterCommunson healthcare [facility] on above:Performed By: #### ESTRADI #### [facility] Laboratory [address] [place] [address] Dr. Kylee HoangUAL DIFF REQNONormalThe [facility], Cancer CenterComment on above: Performed By: #### ESTRADI #### [facility] [address] [place] [address] Dr. Kylee Gamboa (RBC) [Entitic mass]29.6 cvAhfsne36.7-34.0The [facility] CenterCommunson healthcare [facility] on above:Performed By: #### ESTRADI #### [facility] [address] [place] [address] Dr. Kylee Gamboa (RBC) [Mass/Vol]33.3 g/pZEvfvfy83.9-35.2The [facility] CenterCommunson healthcare [facility] on above:Performed By: #### ESTRADI #### [facility] [address] [place] [address] Dr. Kylee Gamboa (RBC) [Entitic vol]88.8 vWYotgti31.0-99.0The [facility] CenterCommunson [facility] on above:Performed By: #### ESTRADI #### [facility] [address] [place] [address] Dr. Kylee Tristan #0.8 103/ulNormal0.3-0.8The [facility], Cancer CenterComment on above:Performed By: #### ESTRADI #### [facility] [address] [address] [address] Kylee Franklinocytes/100 WBC (Bld)8.6 %Normal1.7-12.0The [facility] Comment on above:Performed By: #### ESTRADI #### [facility] [address] [place] [address] Dr. Kylee VidalUT #6.3 103/ulNormal1.4-6.5The [facility], Cancer CenterComment on above:Performed By: #### ESTRADI #### [facility] [address] [place] [address] Dr. Kylee Vidalutrophils/100 WBC (Bld)64.5 %Iqqqse35.0-75.0The [facility], Cancer CenterComment on above:Performed By: #### ESTRADI #### [facility] [address] [place] [address] Dr. Kylee GarnerPlatelet mean volume (Bld) [Entitic vol]10.0 fLNormal9.5-13.5The [facility], Cancer CenterComment on above:Performed By: #### ESTRADI #### [facility] Laboratory [address] [place] [address] Dr. Kylee GarnerPLT271 103/awApequv996-788Mdv [facility] CenterComment on above: Performed By: #### ESTRADI #### [facility] [address] [place] [address] Dr. Kylee GarnerRBC4.46 106/ulNormal4.20-5.40The [facility], Cancer CenterComment on above:Performed By: #### ESTRADI #### [facility] [address] [place] [address] Dr. Kylee GarnerWBC9.8 103/ulNormal4.0-11.0The [facility] CenterCommunson healthcare [facility] on above: Performed By: #### ESTRADI #### [facility] [address] [place] [address] Dr. Pichardo ChangELECTROLYTESon 45-48-9677Msfyr gap [Moles/Vol]7.9 mmol/LNormalThe [facility] Cancer CenterComment on above:Performed By: #### [id number] #### [facility] [address] [address] [address] Kylee GarnerChloride [Moles/Vol]101 mmol/RBazkgk88-793Qai [facility] Comment on above:Performed By: #### [id number] #### [facility] [address] [address] [address] Kylee GarnerCO2 [Moles/Vol]28.8 mmol/AUtobbv33.0-32.0The [facility] Comment on above:Performed By: #### [id number] #### [facility] [address] [address] [address] Kylee GarnerPotassium [Moles/Vol]3.7 mmol/LNormal3.5-5.1The [facility] Comment on above:Performed By: #### [id number] #### [facility] [address] [address] [address] Kylee GarnerSodium [Moles/Vol]134 mmol/LCritically ayt497-609Xja [facility] CenterComment on above:Performed By: #### [id number] #### [facility] [address] [address] [address] Kylee GarnerGLYCOHEMOGLOBIN A1Con 83-18-1328RYO RECOMMENDATIONSEE BELOWNormal [facility] HospitalComment on above:Result Comment: ADA RECOMMENDED LIMIT 4.0 - 6.0 ADA THERAPEUTIC TARGET < 7.0 ACTION SUGGESTED > 7.0Performed By: #### [id number] #### [facility] [address] [address] [address] Kylee GarnerGlucose [Mass/Vol]97 mg/dLNormalThTriHealth Bethesda North HospitalComment on above:Performed By: #### [id number] #### [facility] [address] [address] [address] Kylee GarnerHbA1c (Bld) [Mass fraction]5.0 %Normal4.5-6.2[facility] HospitalComment on above:Performed By: #### [id number] #### [facility] [address] [address] [address] Kylee GarnerMAGNESIUMon 07-15-2546Didmsoamn [Mass/Vol]2.0 mg/dLNormal1.8-2.4 The [facility], Cancer CenterComment on above:Performed By: #### CA, TSH, MG, ELEC #### [facility] [address] [address] [address] Kylee AdornoHojairon 46-79-6098FVT1.725 uIU/mLNormal0.358-3.740The [facility] Cancer CenterComment on above:Performed By: #### [id number] #### [facility] [address] [address] [address] Kylee Garner Vital Signs Date TimeVital SignValuePerforming WicdjpzalCexyohpw76-92-3326 15:24-0400Body mass index (BMI) [Ratio]23.96 kg/j3UxwcfPenguin Computing Work Phone: [phone]-[facility] CenterApfwqfckna24-24-4935 15:24-0400Body movhor62.4 kg BennyPenguin Computing Work Phone: [facility] CenterVrhhtpsjpa15-34-7524 15:24-0400Diastolic blood fwqkfoza57 mm[Hg][employer] ([employer] Work Phone: [facility] CenterQguxmmflqp80-41-4436 15:24-0400Systolic blood eyxyzvwd010 mm[Hg][employer] ([employer]) Work Phone: [facility] CenterZtbmbjnzhb53-23-0861 11:53-0500Body cjsiqz479.18 cmPHYSICIAN [facility]11-09-2024 11:53-0500Body mass index (BMI) [Ratio]23.6 kg/t4AVJGHUUCN [facility]11-09-2024 11:53-0500Body bppetrycwzv30.4 [degF]PHYSICIAN NO [facility]11-09-2024 11:53-0500Body ypliuw31.26 kg PHYSICIAN NO [facility]11-09-2024 11:53-0500 Diastolic blood uhvqgqlk13 mm[Hg]PHYSICIAN NO [facility]11-09-2024 11:53-0500Heart byxq195 /minPHYSICIAN [facility]11-09-2024 11:53-0500Respiratory rate16 /minPHYSICIAN [facility]11-09-2024 11:53-9597KxX3% (BldA) [Mass fraction]94 %PHYSICIAN NO [facility]11-09-2024 11:53-0500Systolic blood geksldwy551 mm[Hg]PHYSICIAN NO [facility] Encounters Encounter DateEncounter TypeCare ProviderFacilityStart: 09-11-2025 End: 97-47-2400Vygpxj flowsNinoska Hernadez PA Work Phone: no [facility]ologyStart: 09-11-2025 End: 57-33-7282Qjteqw flowsheetArleth [facility] PA Work Phone: no[employer] Stefanie DermatologyStart: 09-11-2025 End: 05-43-1518Ohfftmi encounter procedureRyrich [facility] DARIN Work Phone: no[employer] Stefanie DermatologyComment on above:Neoplasm of unspecified behavior of bone, soft tissue, and skin (Primary Dx); Inflamed seborrheic keratosisStart: 09-11-2025 End: 89-98-9403lpnxrrybkaGMYGV NORTHEIMNot AvailableStart: 04-20-2025 End: 13-85-5076Kbijkf flowsheetMokaya Spicer-Beran DPM Work Phone: noms [facility] PODIATRYStart: 04-20-2025 End: 48-70-5433Xstfvn flowsheetMorgan Radha-Beran DPM Work Phone: noms [facility] PODIATRYStart: 04-20-2025 End: 61-29-4853Mulmiw outpatient visit 25 minutesMorbria BlackmonLean-Beran DPM Work Phone: noms [facility] PODIATRYComment on above:Ingrown toenail (Primary Dx); Right foot painStart: 04-20-2025 End: 91-91-5881eqylhipiypSMIBDY RADHA-BERANNot AvailableStart: 03-14-2025 End: 50-48-1522Jlmugms encounter procedureCorey Cyndee DO Work Phone: noms HealthcareStart: 03-14-2025 End: 59-75-9055Ctveysnq preventive med est patient 40-64yrsCorey Cyndee DO Work Phone: noms BCP OBComment on above:Well woman exam with routine gynecological exam; Encounter for screening mammogram for malignant neoplasm of breast; Anxiety and depression ([facility])Start: 03-14-2025 End: 48-88-4366kewggmnzkpGYBVV FAZIONot AvailableStart: 03-14-2025 End: 71-20-6556Zlrxca flowsheetMorgan Radha-Beran DPM Work Phone: noms [facility] PODIATRYStart: 03-14-2025 End: 90-20-9490Etfhtq flowsheetMorgan Radha-Beran DPM Work Phone: noms [facility] PODIATRYStart: 03-14-2025 End: 50-29-9222Cyxrraasd Result EncounterCorey Cyndee DO Work Phone: noms External Department UnsolicitedStart: 03-14-2025 End: 20-54-9967Gqdrsc outpatient new 30 minutesMorgan Radha-Beran DPM Work Phone: noms [facility] PODIATRYComment on above:Ingrown toenail (Primary Dx); Right foot painStart: 03-14-2025 End: 51-63-3991xvhequwsjyZLPXAO RADHA-BERANNot AvailableStart: 10-01-2024 End: 87-39-3331mrrhefeoexTBSAYIXWN NO [facility] Work Phone: Start: 10-01-2024 End: 88-71-6211Wenkosx encounter procedurePHYSICIAN NO [facility] Mike Work Phone: Start: 62-23-1240Fheuxwfgz for preprocedural laboratory examinationDR BENNY CYNDEE .[facility]: 03-20[facility]2023 End: 90-86-4404phugcqytkaWP BENNY CYNDEE .Facility:X5Tuqjl: 03-17-2023 End: 17-92-3039yddjkmizunOW BENNY CYNDEE .Facility:J3Uyzjx: 03-17-2023 End: 21-12-9819Hjphhsyba for preprocedural laboratory examinationDR BENNY CYNDEE .Facility:O0Mnene: 03-04-2023 End: 52-50-2793xmngbmqoujOP WENDI HOY .Facility:H7Gnmhr: 82-92-2013Bmleysbpg for other preprocedural examinationDR BENNY CYNDEE .[facility]Start: 02-24-2023 End: 53-15-6827kicprkozviDG BENNY CYNDEE .Facility:L7Nrmxj: 02-24-2023 End: 03-28-1717Tiivasrtw for other preprocedural examinationDR BENNY CYNDEE . Facility:M0Dczfk: 07-12-2022 End: 92-74-5343hscdheogsxSR BENNY CYNDEE .Facility:V2Zijqh: 07-10-2022 End: 38-40-5555qhdpgzqxcsID BENNY CYNDEE .Facility:Q7Mfgpw: 07-09-2022 End: 50-70-6861oslqddfsqmTU BENNY CYNDEE .Facility:H1 Procedures DateProcedureProcedure DetailPerforming ClinicianStart: 75-09-3689XTMR / NAIL BIOPSYRylee [facility] PA Work Phone: Start: 20-01-7026ZOOSHHINRFQ SKIN LESIONRylee [facility] PA Work Phone: Start: 95-44-7940PFJ,APTIMA HPV,AGE GDLNCorey Cyndee DO Work Phone: Start: 43-90-2560Ceudr chest X-rayPHYSICIAN NO FAMILY Plan of Treatment DateCare ActivityDetailAuthorStart: 09-11-2025 End: 42-30-5636Uhqsosu encounter /20/2025 10:30 AM EDT Office Visit [facility] [address] [place], [id number] Arleth Tristan PA [address] [place] [address] Kimmy Watts DermatologyComment on above:ArrivedStart: 04-20-2025 End: 75-50-8741Dqidrdp encounter uroeiksvu80/29/2025 11:30 AM EDT Office Visit [facility] [address] [place] [id number] Elsy Garza, DPM [address] [place] [address] ArrivedKAI [facility] PODIATRYComment on above: ArrivedStart: 03-28-2025 End: 48-23-2151Quxslmz encounter wxwoiampe87/06/2025 3:45 PM EDT Office Visit [facility] [address] [place] [phone] Elsy Garza, DPM [address] [place] [address] NOMMira SWS PODIATRYStart: 03-14-2025 End: 37-06-9279XD Breast - bilateral ScreeningBilateral screening mammogram Imaging Routine Encounter for screening mammogram for malignant neoplasm of breast Expected: 03/14/2025 (Approximate), Expires: 05/14/2026[facility] Work Phone: comment on above:Expected: 03/14/2025 (Approximate), Expires: 05/14/2026Start: 03-14-2025 End: 01-64-9690Jdnsfrw encounter procedureNOMS [facility] PODIATRYComment on above: Ingrown toenail (Primary Dx)Dermatopathology examDermatopathology exam Pathology and Cytology Timed Neoplasm of unspecified behavior of bone, soft tissue, and skin Release Upon Ordering for 1 Occurrences starting 09/11/2025[facility] Work Phone: comment on above:Release Upon Ordering for 1 Occurrences starting 09/11/2025THIN PREP TIS PAP AND HR HPV DNATHIN PREP TIS PAP AND HR HPV DNA Pathology and Cytology Routine Well woman exam with routine gynecological exam Ordered: 03/14/2025[facility] CenterComment on above:Ordered: 03/14/2025XR Chest 2 [facility] Payers DatePayer CategoryPayerPolicy [id number] Cross Blue ShieldBCBS Member Subscriber Plan / Payer (Effective 2022-Present) Name: Cecile Torres Relation to Subscriber: Self Name: Cecile Torres PayerID: Not on file Type: Not on file Address: [facility] [id number] [place] [id number] [id number] 2..1.926333.3.57[id number] 2..1.905235.3.57[id number] 2..1.703539.3.57[id number] 2..1.754055.3.57[id number] 2..1.379677.3.57[id number] 2.0.1.409566.3.57[id number] 2..840.1.790893.3.57[id number] 2.16.840.1.904117.3.57[id number] 2..840.1.713593.3.57[id number] 2..840.1.216297.3.57[id number] 2.16.840.1.216541.3.579.2.9571[id number] 2.16.840.1.471707.3.579.2.531 Social History DateTypeDetailFacilityStart: 73-59-7308Mosmgae smoking status NHISNever smoked tobacco (finding)[facility]: 10-01-2024 End: 68-35-6111GqjLmhoqp (finding)[facility]tart: 02-61-4536Bgj Assigned At BirthFeOhio Valley Surgical Hospitaltart: 40-83-6027Jdxsfzz smoking status NHISEx-smokerNOMS HealthcareHistory of tobacco useCurrent smokerNOMS HealthcareHistory of tobacco useCigarette SmokerNOMS HealthcareStart: 18-63-1985Ivfehij use and exposureSmokeless tobacco non-user [facility] HealthcareStart: 12-14-2023 End: 98-09-7292Wrsgowmsj beverage intakeCurrent drinker of alcohol (finding)[facility] HealthcareStart: 12-14-2023 End: 49-34-6732Fpqwede of Social functionNOMS HealthcareStart: 12-14-2023 End: 39-69-2999Bilcnvk use panelNOMS HealthcareStart: 45-14-4501Hqzjiyr Comment occasionalNOMS HealthcareStart: 86-45-8184Plggxg identityIdentifies as female gender (finding)[facility] CenterStart: 82-27-5924Eehckw orientationHeterosexual (finding)[facility] CenterStart: 73-53-7023AgsIryiixMOIVMUSC [facility] Clinical Notes 02-24-2023 to 09-11-2025 Note Date & GnlsFywhBrjnfuaz36-30-2116 History of Present illness Narrative* DARIN Saeed - 09/11/2025 10:30 AM EDT [...] Neck, Left Parotid Area, Left Submandibular Area [place] and brown stuck on verrucous scaly papule [...] limited to risks of scarring, darker or tool and die manager pigmentary changes, recurrence, incomplete removal and infection. [...] for any new/changing lesions documented in this encounterHedrick Medical CenterKrkyorynea45-92-1806 History of Present illness Narrative* Elsy Garza DPM - 04/20/2025 11:30 AM EDT FOOT & ANKLE CLINIC VISIT CC: IGTN follow up HPI:Cecile Torres is a 39 y.o. female who presents s/p right hallux bilateral border permanent nail avulsion on 03/14/25. Patient relates since last visit pain has improved and medial border has healed but her lateral border continues to be irritated. She relates mild drainage and redness from lateral border. States she has continued epsom salt soaks with warm water as well as applying peroxide to the site and antibiotic ointment with bandage. Denies any nausea, vomiting, fever, chills, shortness of breath, chest pain or calf pain noted. PCP: Wendi Tello MD Past Medical History: Diagnosis Date BMI 28.0-28.9,adult Depression ([facility]) Encounter for insertion of Mirena IUD Irregular bleeding Restless legs Trouble in sleeping Unicornuate uterus Weight gain Current Outpatient Medications Medication Sig Dispense Refill ALPRAZolam (Xanax) 0.25 MG tablet Take 1 tablet (0.25 mg) by mouth in the morning and 1 tablet (0.25 mg) in the evening and 1 tablet (0.25 mg) before bedtime. 30 tablet 0 pramipexole (Mirapex) 1 MG tablet Take 1 mg by mouth Daily buPROPion SR (Wellbutrin SR) 150 MG 12 hr tablet Take 1 tablet (150 mg) by mouth in the morning and1 tablet (150 mg) before bedtime. Take 1 tablet daily for 3 days, then take 1 tablet daily for 4 days. Quit smoking on day 7 and continue to take medication twice daily.. 180 tablet 1 No current facility-administered medications for this visit. Allergies: Azithromycin Physical Exam: There were no vitals taken for this visit. Cecile is a pleasant, cooperative, well developed 39 y.o. adult female. The patient is alert and oriented to time, place and person. She has normal affect and mood. Vascular: DP and PT pulses are palpable. CFT less than 3 seconds to all digits. Skin temperature iswarm to warm from proximal to distal. Hair growth is noted. Mild right hallux edema noted. No varicosities noted. Neuro: Light touch intact. Derm: Skin texture and turgor within normal limits. Operative site of right hallux medial border healed, lateral site healed with mild serous drainage at proximal base. There is no erythema beyond the immediate affected nail fold. No sign of infeciton noted. No evidence of ascending cellulitis. Webspaces 1-4 clean, dry, intact. No rashes, subcutaneous nodules, or open lesions noted. Musculoskeletal/Orthopaedic: General foot morphology: Rectus. No gross digital deformity noted. Mild pain on palpation noted to the lateral proximal border of the 1st digit, right foot. Assessment: Encounter Diagnoses Name Primary? Ingrown toenail Yes Right foot pain Plan: A comprehensive history and physical examination were performed. Patient was educated on clinical and radiographic findings, diagnosis and treatment plans. Patient states that she understands all that has been explained and all questions were answered to their apparent satisfaction. Discussed with patient that operative site is healing without gross sign of infection noted howevershe continues to have persistent drainage and erythema. RX doxycycline sent to patient pharmacy with instructions for use. Patient to take as directed. Continue epsom salt soak with warm water for 20 minutes for next 48-72 hours Do not apply peroxide or antibiotic ointment at this time as peroxide is caustic to healing wounds and over use of this can also cause chronic skin irritation Leave open to air at night Can cover with bandage when in shoe gear No swimming in pool or craig until drainage stops from operative site Follow up in 2 weeks. Elsy Garza DPM documented in this [facility]05-29-2025 Instructions* Patient Instructions* Elsy Garza DPM - 04/20/2025 11:30 AM EDT Continue epsom salt soak for next 48-72 hours No peroxide or antibiotic ointment at this time Leave open to air at night Can cover with bandage when in shoe gear No swimming in pool or craig until drainage stops from operative site documented in this [facility]04-22-2025 History of Present illness Narrative* Carmen Son LPN - 03/14/2025 3:00 PM EDT Reason for Appointment: Patient ID: Bryanna Torres is a 39 y.o. female who presents for [facility] Visit Patient presents today for Annual Exam. MEDICATIONS Current Outpatient Medications Medication Instructions ALPRAZolam (XANAX) 0.25 mg, Oral, 3 times daily buPROPion SR (WELLBUTRIN SR) 150 mg, Oral, 2 times daily, Take 1 tablet daily for 3 days, then take1 tablet daily for 4 days. Quit smoking on day 7 and continue to take medication twice daily. pramipexole (MIRAPEX) 1 mg, Daily ALLERGIES Allergies Allergen Reactions Azithromycin GI bleeding and Unknown PROBLEMS Active Ambulatory Problems Diagnosis Date Noted No Active Ambulatory Problems Resolved Ambulatory Problems Diagnosis Date Noted No Resolved Ambulatory Problems Past Medical History: Diagnosis Date BMI 28.0-28.9,adult Depression ([facility]) Encounter for insertion of Mirena IUD Irregular bleeding Restless legs Trouble in sleeping Unicornuate uterus Weight gain HISTORY PAST MEDICAL HISTORY SOCIAL HISTORY Past Medical History: Diagnosis Date BMI 28.0-28.9,adult Depression (CMS/HCC) Encounter for insertion of Mirena IUD Irregular bleeding Restless legs Trouble in sleeping Unicornuate uterus Weight gain Social History Tobacco Use Smoking status: Former Types: Cigarettes Smokeless tobacco: Never Substance Use Topics Alcohol use: Yes Comment: occasional Drug use: Never FAMILY HISTORY Family History Problem Relation Name Age of Onset No Known Problems Daughter Sarah No Known Problems Son Cale No Known Problems Son Oleg Coronary artery disease Other Grandfather Breast cancer Other Grandmother SURGICAL HISTORY Past Surgical History: Procedure Laterality Date SECTION, LOW TRANSVERSE 03/2020(tubal ligation), 03/2013 EXPLORATORY LAPAROTOMY ROBOTIC ASSISTED HYSTERECTOMY 03/20/2023 REVIEW OF SYSTEMS Review of Systems: Review of Systems Constitutional: Negative. HENT: Negative. Eyes: Negative. Respiratory: Negative. Cardiovascular: Negative. Gastrointestinal: Negative. Genitourinary: Negative. Musculoskeletal: Negative. Skin: Negative. Neurological: Negative. All other systems reviewed and are negative. Hematological: Negative. Endocrine: Negative. Allergic/Immunologic: Negative. OBJECTIVE Objective: Physical Exam Constitutional: Appearance: Normal appearance. She is well-developed. Genitourinary: Vulva normal. Vaginal cuff intact. Cervix is absent. Uterus is absent. Cardiovascular: Rate and Rhythm: Normal rate and regular rhythm. Abdominal: General: Bowel sounds are normal. There is no distension. Palpations: Abdomen is soft. Tenderness: There is no abdominal tenderness. There is no guarding or rebound. Musculoskeletal: General: No swelling. Normal range of motion. Right lower leg: No edema. Left lower leg: No edema. Neurological: Mental Status: She is alert and oriented to person, place, and time. Skin: General: Skin is warm and dry. Psychiatric: Mood and Affect: Mood normal. Behavior: Behavior normal. Vitals and nursing note reviewed. Exam conducted with a retail salesman present. Vitals: Estimated body mass index is 23.96 kg/m as calculated from the following: Height as of 07/14/23: 5' 7 . Weight as of this encounter: 153 lb. BP: 120/70 No LMP recorded. Patient has had a hysterectomy. ASSESSMENT & PLAN ICD-10-CM 1. Well woman exam with routine gynecological exam Z01.419 THIN PREP TIS PAP AND HR HPV DNA 2. Encounter for screening mammogram for malignant neoplasm of breast Z12.31 Bilateral screening mammogram Bilateral screening mammogram 3. Anxiety and depression ([facility]) F41.9 F32.A Annual: Patient presents today for an annual exam. Patient states she is doing well and has no complaints. Pap was obtained without difficulty and patient given mammogram order to have scheduled/obtained. Ptto have mammogram every year and pap every third year. Orders Placed This Encounter Procedures Bilateral screening mammogram Follow Up: Patient is to return in one year for annual unless needed otherwise. Documented by Carmen Son LPN on behalf of: Benny Cotter DO documented in this encounterHedrick Medical CenterScbbrkafer83-18-4642 History of Present illness Narrative* Elsy Garza DPM - 03/14/2025 8:30 AM EDT FOOT & ANKLE CLINIC VISIT CC: Right great toe pain HPI:Cecile Torres is a 39 y.o. female who presents with complaint of right great toe pain of the right foot. Patient states that pain has been present for a few weeks, states she used to see an TEAM PSYCHOLOGIST who performed a slant back to the region. States she had 3 partial temporary nail procedures in the past with recurrence. Admits to increased pain with pressure to the area. + drainage and erythema noted to the area. Admits to history of ingrown toenail in the past. Has been applying antibiotic ointment and bandage daily. Denies any nausea, vomiting, fever, chills, shortness of breath, chest pain or calf pain noted. PCP: Wendi Tello MD Past Medical History: Diagnosis Date BMI 28.0-28.9,adult Depression ([facility]) Encounter for insertion of Mirena IUD Irregular bleeding Restless legs Trouble in sleeping Unicornuate uterus Weight gain Past Surgical History: Procedure Laterality Date SECTION, LOW TRANSVERSE 03/2020(tubal ligation), 03/2013 EXPLORATORY LAPAROTOMY ROBOTIC ASSISTED HYSTERECTOMY 03/20/2023 Social History Tobacco Use Smoking status: Former Types: Cigarettes Smokeless tobacco: Never Substance Use Topics Alcohol use: Yes Comment: occasional Family History Problem Relation Name Age of Onset No Known Problems Daughter Sarah No Known Problems Son Cale No Known Problems Son Oleg Coronary artery disease Other Grandfather Breast cancer Other Grandmother Current Outpatient Medications Medication Sig Dispense Refill ALPRAZolam (Xanax) 0.25 MG tablet Take 1 tablet (0.25 mg) by mouth in the morning and 1 tablet (0.25 mg) in the evening and 1 tablet (0.25 mg) before bedtime. (Patient taking differently: Take 0.25 mg by mouth if needed for anxiety) 30 tablet 0 buPROPion SR (Wellbutrin SR) 150 MG 12 hr tablet Take 1 tablet (150 mg) by mouth in the morning and1 tablet (150 mg) before bedtime. Take 1 tablet daily for 3 days, then take 1 tablet daily for 4 days. Quit smoking on day 7 and continue to take medication twice daily.. 180 tablet 1 pramipexole (Mirapex) 1 MG tablet Take 1 mg by mouth Daily No current facility-administered medications for this visit. Allergies: Azithromycin Review of Systems: GENERAL: No weight loss, malaise or fevers. HEENT: Negative for frequent or significant headaches, vision changes, nose bleeds RESPIRATORY: Negative for cough, wheezing or shortness of breath. CARDIOVASCULAR: Negative for chest pain, leg swelling or palpitations. GI: Negative for abdominal discomfort, nausea, vomiting MUSCULOSKELETAL: +R Foot Pain SKIN: +IGTN R Foot NEURO: Denies numbess, tingling or burning in feet Physical Exam: There were no vitals taken for this visit. Cecile is a pleasant, cooperative, well developed 39 y.o. adult female. The patient is alert and oriented to time, place and person. She has normal affect and mood. Vascular: DP and PT pulses are palpable. CFT less than 3 seconds to all digits bilateral. Skin temperature is warm to warm from proximal to distal bilateral. Hair growth is noted. Mild right hallux edema noted. No varicosities noted. Neuro: Light touch intact bilateral. Derm: Skin texture and turgor within normal limits. Incurvation noted to the bilateral border of the 1st digit, right foot. There is serous drainage. There is no erythema beyond the immediate affected nail fold. No evidence of ascending cellulitis. Webspaces 1-4 clean, dry, intact b/l. No rashes, subcutaneous nodules, or open lesions noted. Musculoskeletal/Orthopaedic: General foot morphology: Rectus. No gross digital deformity noted. Pain on palpation noted to the bilateral border of the 1st digit, right foot. Assessment: Encounter Diagnoses Name Primary? Ingrown toenail Yes Right foot pain Plan: A comprehensive history and physical examination were performed. Patient was educated on clinical and radiographic findings, diagnosis and treatment plans. Patient states that she understands all that has been explained and all questions were answered to their apparent satisfaction. Patient was educated on possible treatment options for ingrown toenail. Patient was educated on permanent nail avulsion procedure to the right hallux bilateral nail border. Patient was educated on details of procedure as well as medically reasonable risks, benefits and complications. Verbal consentwas obtained. Patient elects to proceed. Please see procedure note below. Home going instructions were dispensed to patient. Follow up in 2 weeks. Elsy Garza DPM After a discussion of the options, the patient elects to proceed with a permanent nail avulsion procedure of the bilateral border of the right hallux today under local digital block. The risks, benefits, potential complications, personnel present, and alternatives were discussed. The patient elected to proceed. Patient properly identified. Procedure site marked. A timeout was performed. A digital block of the 1st right digit was performed using a total of 6 cc of 1% Lidocaine plain and 0.5% Marcaine plain in 1:1 ratio. A tourniquet was then placed overlying the digit. After a betadine prep, a blunt elevator was used to free the offending nail border of the right 1st digit and a longitudinal sectioning was performed using an nail nipper. The offending portion of nail plate was avulsed. The nail border was then inspected to insure removal of entire offending nail plate and this was noted to be the case. A phenol swab was applied to the nail matrix area and nail border for 3 applications of 10 seconds each. Irrigation was then performed using copious amounts of alcohol. The tourniquet was then released and capillary refill to the digit was immediate. Bacitracin and dry sterile dressing was applied. Homegoing instructions were dispensed, including office and mechanic general operational test contact numbers. documented in this [facility]04-22-2025 Instructions* Patient Instructions* Elsy Garza DPM - 03/14/2025 8:30 AM EDT POST-OPERATIVE NAIL AVULSION PATIENT INSTRUCTIONS Minimize your activity until the anesthesia wears off in about 2-8 hours. You may then increase your activity to tolerance. Avoid tight fitting shoes for the first 24-48 hours. Remove the bandage the day following surgery. If the bandage sticks to the operative site, soak the site in warm water. This should loosen the gauze and you may remove gently. Soak the operated toe in warm water and Epsom salts 2x/day for 15-20 minutes. Use 1-2 tablespoons of Epsom salts per quart of warm water. Soak daily until drainage stops. After soaking, apply antibiotic ointment to the operative area and cover with a cloth Band-Aid. If you experience pain, you may take Aspirin, Tylenol, Advil or Aleve providing that you have no allergies or intolerances to these medications. The operative toe is expected to have mild drainage and bleeding. The entire healing time varies for each patient. Average healing time is 2-4 weeks. If questions or problems arise, please call the office. documented in this [facility]11-09-2024 Evaluation note* Diagnosis Onset Date Resolution Status Admit Date COVID-19 acuteNovember 2023 11:48am [facility] Work Phone: [phone]) 797-960704-28-2023 NoteOPERATIVE NOTE OPERATION DATE: 03/20/2023 PROCEDURE: Robotic assisted laparoscopic hysterectomy with bilateral salpingectomy with cystoscopy. PREOPERATIVE DIAGNOSIS: Pelvic pain, abnormal bleeding. POSTOPERATIVE DIAGNOSIS: Pelvic pain, abnormal bleeding. ANESTHESIA: General. SURGEON: Benny Cotter D.O. REIMBURSEMENT COORDINATOR: NATHANIEL Huff URINE OUTPUT: Yellow and clear. BLOOD LOSS: 150 mL. SPECIMEN: Uterus and cervix and tubes. PROCEDURE: The patient was taken back to the operating room, where she was prepped and draped in the normal sterile fashion after being placed in the dorsal lithotomy position. Patient's anesthesia was found to be adequate. Surgical timeout was performed using two patient identifiers. SCDs were on and in place. Two grams of Ancef were given prior to the surgery. Sterile Sharpe catheter was inserted. Standard size VCare was secured to the uterine cervix and the surgeon changed gloves. Attention then was turned to the patient's abdomen, where a supraumbilical incision was then made. Two S retractors were used to identify the patient's fascia. The fascia was then tented up using Deejay clamps and the patient's fascia was incised sharply. Patient's abdomen was identified and entered bluntly. The patient had the trocar placed and a pneumoperitoneum was obtained. Approximately 4 liters of CO2 gas was used. The camera was then placed through the trocar. At this time, two robot trocars were placed in the patient's left and right side, two hand widths from the midline, and this was placed under direct visualization. The patient's tube on the right side was tended up and the vessel sealer was then used to come across the mesosalpinx, and this was carried down to the uterine ovarian ligament. The vessel sealer was carried down serially to the broad ligament, to the area of the bladder flap, which was then created anteriorly, and the uterine arteries were skeletonized and sealed using the vessel sealer. The colpotomy was made using the monopolar cautery on cut, and this was carried circumferentially, posteriorly to anteriorly, until the uterus was amputated. The specimen was then removed intact through the vagina, without difficulty. The vagina was then closed using two running V-Loc in a non-lock fashion. The robot was undocked. The abdomen was desufflated. The skin defects were closed using 4-0 Vicryl. Please note, the fascia was closed using 0 Vicryl. Sponge, lap and needle counts were correct x2. Patient was taken to recovery room in stable condition. The patient was awakened by Anesthesia first. Patient tolerated procedure well.[facility] [id number] NoteOPERATIVE NOTE OP Note OPERATION DATE: 03/20/2023 ADDENDUM: Please note that patient had IUD removal as part of the hysterectomy. It was left inside the patient's uterus and was removed along with the uterus. Please note that a right ovarian cystotomy was performed using monopolar scissors with excellent hemostasis.[facility] [id number] Note EXAMINATION: XR IVP HISTORY: Pre-surgery evaluation ; unicornuate uterus COMPARISON: No relevant comparison available. TECHNIQUE: After obtaining patient consent a mask inspector image was obtained followed by injection of 100cc of Omnipaque 300 IV contrast. Immediate nephrographic images were obtained. Corticomedullary and urographic phase images were obtained at 5, 10, 15 and 20 minutes. 15 minute oblique images were also obtained. FINDINGS: KIDNEY/URETER - RIGHT: No visible calcifications. KIDNEY/URETER - LEFT: No visible calcifications. PELVIS: No visible ureteral calcifications. Any visible calcifications favor phleboliths. NEPHROGRAPHIC PHASE: Normal, symmetric size, contour, and orientation. Normal and symmetric time of contrast uptake. CORTICOMEDULLARY: No mass or abnormal appearing medulla, pyramids, or collecting system. UROGRAPHIC PHASE: Normal caliber, course, and number of ureters. BLADDER: Normal size and contour. BOWEL: No abnormal dilation or deviation. BONES: No acute abnormality. OTHER: IUD projecting over midline pelvis. IMPRESSION: 1. No duplication of the ureters. Normal IVP study. Electronically authenticated by: EULA WINSTON Date: 2023-02-24 09:33[facility]* Diagnosis Onset Date Resolution Status Admit Date COVID-19 acuteNovember 2023 11:48am [facility] Work Phone: Evaluation note* Diagnosis Ingrown toenail- Primary Ingrowing nail Right foot pain Pain in soft tissues of limb documented in this encounter [facility] Healthcare[facility]* Diagnosis Well woman exam with routine gynecological exam Routine gynecological examination Encounter for screening mammogram for malignant neoplasm of breast Anxiety and depression (CMS/HCC) documented in this encounter [facility] HealthcareEvaluation note* Diagnosis Ingrown toenail- Primary Ingrowing nail Right foot pain Pain in soft tissues of limb documented in this encounter [facility] HealthcareEvaluation note* Diagnosis Neoplasm of unspecified behavior of bone, soft tissue, and skin- Primary Inflamed seborrheic keratosis documented in this encounter [facility] Summary Purpose Family History No Family History Records FoundNo Family History Records FoundNo Family History Records Found Advance Directives No Advanced Directives Records Found Advance Directive Response Recorded Date/ Time Advance Directives No December 11:01am Chief Complaint and Reason for Visit Chief Complaint Admit Date Sore throat, congestion, nausea October 01, 2024 11:48am Reason for Visit Admit Date COVID-19 October 01, 2024 1 1:48am Additional Source Comments INFORMATION SOURCE (unrecogn ized section and content) DATE CREATED AUTHOR 05/01/2023 [facility] DATE CREATED AUTHOR AUTHOR'S ORGANIZ ATION 10/13/2024 [facility] DATE CREATED AUTHOR AUTHOR'S ORGANIZ ATION 09/11/2025 [facility] EPIC Care Teams (unrecognized sec tion and content) Team Status: Active Member Role Status Dates PHYSICIAN NO FAMILY Primary Care Provider Active Team Status: Inactive Member Role Status Dates PHYSICIAN NO FAMILY Primary Care Provider Active Start: October 01, 2024 End: October 01, 2024Brian Putnam ProviderActiveStart: October 01, 2024 End: October 01, 2024 Team Status: Active Member Role Status Dates PHYSICIAN NO FAMILY Primary Care Provider Active Start: October 01, 2024 Brian Putnam ProviderActiveStart: October 01, 2024 Team MemberRelationshipSpecialtyStart DateEnd Date Wendi Tello MD [address] [place] [address] PCP - GeneralFamily Medicine03/14/25Team MemberRelationshipSpecialtyStart DateEnd Date Wendi Tello MD [address] [place] [address] PCP - GeneralFamily Medicine03/14/25Team MemberRelationshipSpecialtyStart DateEnd Date Wendi Tello MD [address] [place] [address] PCP - GeneralFamily Medicine03/14/25Team MemberRelationshipSpecialtyStart DateEnd Date Oli Barahona MD [address] [place] [address] PCP - GeneralInternal Medicine04/19/25Team MemberRelationshipSpecialtyStart Date End Date Wendi Tello MD [address] [place] [address] PCP - GeneralFamily Medicine04/20/25Team MemberRelationshipSpecialtyStart DateEnd Date Wendi Tello MD [address] [place] [address] [facility] - [facility]04/20/25 Goals (unrecognized section and content) Goals may be documented in a n alternate sectionGoals may be documented in an alternate section Reason for Visit (unrecogniz ed section and content) ReasonCommentsWell Women VisitReasonCommentsSuspicious Skin Lesion FOR RECORDS PERTAINING TO PATIENTS WHO ARE OR HAVE BEEN ENROLLED IN A CHEMICAL DEPENDENCY/SUBSTANCEABUSE PROGRAM, SOME INFORMATION MAY BE OMITTED. This clinical summary was aggregated from multiple sources. Caution should be exercised in using it in the provision of clinical care. This summary normalizes information from multiple sources, and as a consequence, information in this document may materially change the coding, format and clinical context of patient data. In addition, data may be omitted in some cases. CLINICAL DECISIONS SHOULD BE BASED ON THE PRIMARY CLINICAL RECORDS. [facility] [employer] [facility]. provides no warranty or guarantee of the accuracy or completeness of information in this document.
--- OUTSIDE RECORDS SUMMARY | 2025-09-13 08:24 | XMS_ITS | Clinical Summary ---
Author Organization [facility] Address [id number] [place] [address] Care Team Providers Care Light Technician Name Role Phone Nathen Tello MD Primary Care Provider [phone] Allergies No known active allergies Medications MedicationSigDispense QuantityRefillsLast FilledStart DateEnd DateStatus 25/iron fum/folic/dha (-1 ORAL) Take 1 tablet by mouth daily.Active aspirin 81 mg Take 81 mg by mouth daily.Active Active Problems ProblemNoted DateDiagnosed DateUnicornuate uterus affecting in first trimester, lithltnzoc88/07/2019AMA (advanced maternal age) multigravida 35+ 09/29/2019History of C-bvcwcor1809/29/2019History of anxiety itzhtvye02/07/2019 Resolved Problems ProblemNoted DateDiagnosed DateResolved DateOvarian mass, left02/23/2017 09/29/2019 Family History Medical HistoryRelationNameCommentsBreast cancerMaternal GrandmotherRelationName StatusCommentsMaternal Grandmother Social History Tobacco UseTypesPacks/DayYears UsedDateSmoking Tobacco: FormerCigarettesQuit: 2016Smokeless Tobacco: NeverAlcohol UseStandard Drinks/WeekCommentsNot Currently 0 (1 standard drink = 0.6 oz pure alcohol)SOCIALLYChildcareAnswerDate Recorded MtligvjeoKdwmspc71/12/2019EmploymentAnswerDate RecordedEmploymentUnknown 05/04/2019Purpose - LifeAnswerDate RecordedPurpose and direction in lifeUnknown 1CommentsNoSex and Gender InformationValueDate RecordedSex Assigned at BirthNot on fileLegal FwtAulrte28/06/2015 12:12 PM EDTGender IdentityNot on fileSexual OrientationNot on file Last Filed Vital Signs Vital SignReadingTime TakenCommentsBlood Ofmouwqd331/6811 2:09 PM EST Nkzdo069609/29/2019 2:09 PM ESTTemperature--Respiratory Rate--Oxygen Saturation-- Inhaled Oxygen Concentration--Iukqir21.9 kg (176 lb 2.4 oz)09/29/2019 2:09 PM CDRFbkybi237.2 cm (5' 7 )09/29/2019 2:09 PM ESTBody Mass Index27.5909/29/2019 2:09 PM EST Plan of Treatment Health MaintenanceDue DateLast DoneCommentsDepression Hqidfwjfq90/16/1996Tobacco Znqpqjmbt19/16/1996Adult BMI Zokigodoi27/16/2002DTaP,Tdap and Td Vaccines (1 - Tdap)2002Pap Smear2004Influenza Tywzrqb0207/24/2025 Medical Devices Not on file Insurance Care Teams Team MemberRelationshipSpecialtyStart Date Nathen Tello MD PCP - [facility]02/23/17
--- OUTSIDE RECORDS SUMMARY | 2025-09-13 08:24 | XMS_ITS | Encounter Summary ---
Author Organization [facility] Address [address] [place] [address] Care Team Providers Care Public Works Supervisor Name Role Phone Nathen Tello MD Primary Care Provider [phone] Encounter Details DateTypeDepartmentCare Team (Latest Contact Info)Gdbglktsrch00/20/2025Travel Social History Tobacco UseTypesPacks/DayYears UsedDateSmoking Tobacco: FormerCigarettes Smokeless Tobacco: NeverAlcohol UseStandard Drinks/WeekCommentsYes0 (1 standard drink = 0.6 oz pure alcohol)occasionalCommentsNoSex and Gender InformationValueDate RecordedSex Assigned at NetlxIydjsd35/23/2023 11:07 AM EDT Legal IwbBhepaw34/15/2023 11:34 PM EDTGender CcpbprpkJdjkse99/23/2023 11:07 AM EDTSexual RmkucoakqjuBdocgbum84/23/2023 11:07 AM EDTdocumented as of this encounter Plan of Treatment Not on file documented as of this encounter Visit Diagnoses Not on filedocumented in this encounter Care Teams Team MemberRelationshipSpecialtyStart DateEnd Date Nathen Tello MD [address] [place] [address] PCP - GeneralFamily Medicine04/20/25documented as of this encounter
--- OUTSIDE RECORDS SUMMARY | 2025-09-13 08:24 | XMS_ITS | Encounter Summary ---
Author Organization [facility] Address [address] [place] [address] Care Team Providers Care Last Waxer Name Role Phone Nathen eTllo MD Primary Care Provider [phone] Encounter Details DateTypeDepartmentCare Team (Latest Contact Info)Aytyojyljdb57/20/2025amboo flowsheet [facility] [address] [place] [address] Laina Tristan PA [address] [place] [address] Social History Tobacco UseTypesPacks/DayYears UsedDateSmoking Tobacco: FormerCigarettes Smokeless Tobacco: NeverAlcohol UseStandard Drinks/WeekCommentsYes0 (1 standard drink = 0.6 oz pure alcohol)occasionalCommentsNoSex and Gender InformationValueDate RecordedSex Assigned at LxwyoImvtmv69/23/2023 11:07 AM EDT Legal GpwOfvvli05/15/2023 11:34 PM EDTGender NtstcyvfMhyxmm08/23/2023 11:07 AM EDTSexual FzjqlipjwjtAjkacdjf22/23/2023 11:07 AM EDTdocumented as of this encounter Plan of Treatment Not on file documented as of this encounter Visit Diagnoses Not on filedocumented in this encounter Care Teams Team MemberRelationshipSpecialtyStart DateEnd Date Nathen Tello MD [address] [place] [address] PCP - GeneralFamily Medicine04/20/25documented as of this encounter
--- OUTSIDE RECORDS SUMMARY | 2025-09-13 08:24 | XMS_ITS | Clinical Summary ---
Author Organization [facility] Address [address] [place] [address] Care Team Providers Care Public Policy Coordinator Name Role Phone Nathen Tello MD Primary Care Provider [phone] Allergies Active AllergyReactionsCriticalityNoted DateCommentsAzithromycinGI bleeding, Ihuzcbw2504/14/2023 Medications MedicationSigDispense QuantityRefillsLast FilledStart DateEnd DateStatus pramipexole (Mirapex) 1 MG tablet Take 1 mg by mouth DailyActive ALPRAZolam (Xanax) 0.25 MG tablet Indications:Anxiety and depressionTake 1 tablet (0.25 mg) by mouth in the morning and 1 tablet (0.25 mg) in the evening and 1 tablet (0.25 mg) before bedtime. 30 tablet 09/04/2023ctive buPROPion SR (Wellbutrin SR) 150 MG 12 hr tablet Indications:Anxiety and depressionTake 1 tablet (150 mg) by mouth in the morning and 1 tablet (150 mg) before bedtime. Take 1 tablet daily for 3 days, then take 1 tablet daily for 4 days. Quit smoking on day 7 and continue to take medication twice daily.. 180 tablet ctive Active Problems No known active problems Encounters DateTypeDepartmentCare WhjhEmpljkwbdpf95/20/2025 10:30 AM EDTOffice Visit [facility] [address] [place] [address] Laina Tristan PA Neoplasm of unspecified behavior of bone, soft tissue, and skin (Primary Dx); Inflamed seborrheic /20/2025amboo flowsheet [facility] [address] [place] [address] Laina Tristan PA 09/11/2025Travelfrom Last 3 Months Family History Medical HistoryRelationNameCommentsNo Known ProblemsDaughterBrilynnBreast cancer OtherGrandmotherCoronary artery diseaseOtherGrandfatherNo Known ProblemsSon 1 BennettNo Known ProblemsSon 2BrextonRelationNameStatusCommentsBrotherAlive DaughterBrilynnAliveFatherAliveMotherAliveOtherSisterAliveSon 1BennettAliveSon 2 BrextonAlive Social History Tobacco UseTypesPacks/DayYears UsedDateSmoking Tobacco: FormerCigarettes Smokeless Tobacco: Never Tobacco Cessation:Counseling Given: Not Answered Alcohol UseStandard Drinks/WeekCommentsYes0 (1 standard drink = 0.6 oz pure alcohol)occasionalCommentsNoSex and Gender InformationValueDate Recorded Sex Assigned at DjsbuTcflza74/23/2023 11:07 AM EDTLegal KrmNgowqu73/15/2023 11:34 PM EDTGender GhowtnkpHvvqbb34/23/2023 11:07 AM EDTSexual Orientation Eykrwefg42/23/2023 11:07 AM EDT Last Filed Vital Signs Vital SignReadingTime TakenCommentsBlood Athwczlc303/7004 3:24 PM EDT Pulse--Temperature--Respiratory Rate--Oxygen Saturation--Inhaled Oxygen Concentration--Phxrdl73.4 kg (153 lb)03/14/2025 3:24 PM KLYZmrian018.2 cm (5' 7 )07/14/2023 11:47 AM EDTBody Mass Index23.9608 11:47 AM EDT Plan of Treatment Not on file Procedures Procedure NamePriorityDate/TimeAssociated DiagnosisCommentsSKIN / NAIL BIOPSY Hgdhppr7609/11/2025 10:40 AM EDT Neoplasm of unspecified behavior of bone, soft tissue, and skin CRYOTHERAPY SKIN DSTRGNKjsepcr33/20/2025 10:38 AM EDT Inflamed seborrheic keratosis from Last 3 Months Results * Lesion biopsy (09/11/2025 10:40 AM EDT) Narrative WeinerAriana MA - 09/11/2025 10:40 AM EDT Type [...] lidocaine used: 0.5 cc Authorizing ProviderResult TypeResult StatusRylee [facility] PADERM PROCEDURE ORDERABLESFinal Result * Cryotherapy, skin lesion (09/11/2025 10:38 AM EDT) Narrative Authorizing ProviderResult TypeResult StatusRylee [facility] PADERM PROCEDURE ORDERABLESFinal Result from Last 3 Months Insurance Care Teams Team MemberRelationshipSpecialtyStart DateEnd Date Nathen Tello MD [address] [place] [address] [facility]04/20/25
--- OUTSIDE RECORDS SUMMARY | 2025-09-13 08:24 | XMS_ITS | Patient Health Record ---
Author Organization [facility] [place] Address [address] [place] [address] Care Team Providers Care Proof Press Operator Name Role Phone David Tello Primary Care Provider Allergies Allergen (clinical drug ingredient) Drug/Non Drug Allergy documented on EMR Reaction Allergy Type Onset Date Status azithromycin Zithromax unknown Drug Allergy Active Results Component Value Reference Range Notes IGP,Aptima HPV,Age Gdln Reviewed date:03/19/2025 01:11:02 PM Interpretation: Performing Lab: Notes/Report: SPATULA-ALONE VAGINA [facility] , Age Gdln ACOG Testing Note . TESTS RESULT FLAG UNITS REF RANGE LAB Clinician Provided Cytology Information Source.............Vagina No. of containers..01 ThinPrep Vial Age Algo ACOG Valarie... 30-65 01 FLAG LEGEND: L-Low Normal,H-High Normal,LL-Alert Low,HH-Alert High <-Panic Low,>-Panic High,A-Abnormal,AA-Critical Abnormal Performed at: 01 =G [facility] [place] [address] [place] [address] Jaqueline Vila MD, IGP, Aptima HPV, rfx 16/18,45 Note . TESTS RESULT FLAG UNITS REF RANGE LAB DIAGNOSIS: 02 NEGATIVE FOR INTRAEPITHELIAL LESION OR MALIGNANCY. Specimen adequacy: 02 Satisfactory for evaluation. Performed by: 02 [place], Rubber Process Hand (ASC) . 02 Note: Note 02 The Pap [...] High,A-Abnormal,AA-Critical Abnormal Performed at: 02 WB [facility] [address] [address] Jaqueline Vila MD, HPV Aptima Negative Negative This nucleic acid amplification test detects fourteen high- risk HPV types (16,18,31,33,35,39,45,51,52,56,58 ,59,66,68) without differentiation. Performed at: = - [facility] [id number] Business Systems Developer: Jaqueline Vila MD, Phone: [phone] Performed at: - [facility] [id number] Business Systems Developer: Jaqueline Vila MD, Phone: [phone] Performing Lab: see note LC - [facility] Reason For Referral No Information Medications Medication SIG (Take, Route, Frequency, Duration) Notes Start Date End Date Status buPROPion HCl ER (SR) 150 MG 1 tablet in the morning Oral Once a day; Duration: 90 days ActivePramipexole Dihydrochloride 1 MGTake 1 tablet by mouth once daily.; Duration: 30ActiveALPRAZolam 0.25 MG1 tablet Orally TID; Duration: 7PRN 5ActiveOzempic (Semaglutide) 8mg/3mLAs directed InjectionActive Social History Tobacco Use: Social History Observation Description Date Details (start date - stop date) Never Smoker NA - NA Tobacco Use/Smoking Question Answer Notes Patient is a nonsmoker Alcohol Screen (Audit-C) Question Answer Notes Did you have a drink containing alcohol in the p ast year? No Ughkes1IywumosrotahhvFqqlpjruSSDXM-Z (Standard) Question Answer Notes Did you have a drink containing alcohol in the p ast year? Yes How often did you have six or more drinks on one occasion in the past year?Never (0 point)How many drinks did you have on a typical day when you were drinking in the past year?1 or 2 drinks (0 point)How often did you have a drink containing alcohol in the past year?2 to 3 times a week (3 points)Qevfjd2Rwxmrenkocehiz Positive Problems Problem Type SNOMED Code ICD Code Onset Dates Problem Status W/U Status Risk Notes Problem Pleurisy (104568551) Pleurisy (R09.1) ActiveconfirmedProblemFatigue (60442870)Fatigue (R53.83)ActiveconfirmedProblem Depression (619535010)Depression (F32.9)ActiveconfirmedProblemInsomnia (507800224)Insomnia (G47.00)ActiveconfirmedProblemParonychia (20701971) Paronychia (L03.019)Activeconfirmed Vital Signs Blood pressure diastolic 62 mm Hg 12/19/2024 Vjmavi43 in12/19/2024lood pressure hvqjisdc378 mm Hg12/19/20246219Mzaixo341 lbs 12/19/2024BMI24.43 kg/m212/19/2024 Encounters Encounter Location Date Provider Diagnosis [address] [place] [address] 12/19/2024 David Tello Insomnia G47.00 [facility] [address] [place] [address] 12/19/2024 [facility] [facility] [place] [address] 03/07/2025Doug [facility]BV[facility] [place] [address]/Doug HoyFatigue R53.83[address] [place] [address]/Doug Elisha Assessments Encounter Date Diagnosis (ICD Code) Assessment Notes Treatment Notes Treatment Clinical Notes Section Notes 12/19/2024 Insomnia (ICD-10 - G47.00) 03/14/2025Fatigue (ICD-10 - R53.83) Plan Of Treatment Pending Test Test Name Order Date XR CHEST 2 V 01/11/2024 Insurance Providers Payer Name Payer Address Payer Phone Subscriber Number Group Number Insured Name Patient Relationship to Insured Coverage Start Date Coverage End Date [employer] PPO PLUS LOCAL PLAN [address] [place] [address] [id number] Cecile Torres Self - patient is the insured Medications Administered Medication Instructions Date of Administration Dosage Notes Kenalog-40 02/12/9078494 mgKetorolac Hnczsjlhptoq41/12/920583 mg Medical (General) History Medical History History ICD Code COVID-19 U07.1 Insomnia G47.00 Ovarian cyst, left N83.202 Hair loss L65.9 Fatigue R53.83 Surgical History Surgery Date(Month/Year) Partial Hysterectomy Exp LapC-section x2
--- NOTE | 2025-09-13 08:32 | MM_ITS ---
Patient Name: MARIJA LOPEZ MR#: [id number] : 1985 Exam Date: 09/13/2025 Ordering Doctor: DR BENNY HUANG . RADIOLOGY REPORT PROCEDURE: MM TOMOSYNTHESIS SCREENING BI COMPARISON: None. INDICATIONS: Screening Calculator Name NCI Breast Cancer Risk Assessment Tool 5 Year Breast Cancer Risk 0.60% Lifetime Breast Cancer Risk 10.10% Personal Breast Cancer No Personal Ovarian Cancer No Treatments None Family Cancers Grandmother-paternal with breast cancer at age 65. LOCATION: [facility] BREAST COMPOSITION: There are scattered areas of fibroglandular density. FINDINGS: RIGHT BREAST: No significant suspicious finding. Benign-appearing lymph nodes are noted along the chest wall. LEFT BREAST: No significant suspicious finding. Marked a benign-appearing calcification is noted central aspect of the left breast . DIAGNOSTIC CATEGORY 2--BENIGN FINDING: RECOMMENDATIONS: ROUTINE MAMMOGRAM AND CLINICAL EVALUATION IN 12 MONTHS. Dictated by: Jairon Butler MD on 09/13/2025 at 11:14 Approved by: Jairon Butler MD on 09/13/2025 at 11:32
== END 2025-09-13 08:22 | disposition home or self-care (01) ==
LOC: MAMMO 08:21
PROVIDERS: PCP Family Medicine; Visit Provider Obstetrics & Gynecology
DX: Z12.31 Encounter for screening mammogram for malignant neoplasm of breast (principal); Z80.3 Family history of malignant neoplasm of breast
CPT/HCPCS: 77063; 77067

== ENCOUNTER 2025-10-28 08:13 | Outpatient (OUT) | payer BC, SELFPAY ==
--- OUTSIDE RECORDS SUMMARY | 2025-10-28 08:16 | XMS_ITS | Clinical Summary ---
Author Organization [facility] Address [facility] [id number] [address] [place] [address] Care Team Providers Care Crystal Gazer Name Role Phone Nathen Tello MD Primary Care Provider [phone] Allergies No known active allergies Medications MedicationSigDispense QuantityRefillsLast FilledStart DateEnd DateStatus 25/iron fum/folic/dha (-1 ORAL) Take 1 tablet by mouth daily.Active aspirin 81 mg Take 81 mg by mouth daily.Active Active Problems ProblemNoted DateDiagnosed DateUnicornuate uterus affecting in first trimester, ibzculvcbv70/07/2019AMA (advanced maternal age) multigravida 35+ 09/29/2019History of C-qofagwj0609/29/2019History of anxiety /07/2019 Resolved Problems ProblemNoted DateDiagnosed DateResolved DateOvarian mass, left02/23/2017 09/29/2019 Family History Medical HistoryRelationNameCommentsBreast cancerMaternal GrandmotherRelationName StatusCommentsMaternal Grandmother Social History Tobacco UseTypesPacks/DayYears UsedDateSmoking Tobacco: FormerCigarettesQuit: 2016Smokeless Tobacco: NeverAlcohol UseStandard Drinks/WeekCommentsNot Currently 0 (1 standard drink = 0.6 oz pure alcohol)SOCIALLYChildcareAnswerDate Recorded HqprbqysuIpvgpaj45/12/2019EmploymentAnswerDate RecordedEmploymentUnknown 05/04/2019Purpose - LifeAnswerDate RecordedPurpose and direction in lifeUnknown 1CommentsNoSex and Gender InformationValueDate RecordedSex Assigned at BirthNot on fileLegal VhgRluxfa02/06/2015 12:12 PM EDTGender IdentityNot on fileSexual OrientationNot on file Last Filed Vital Signs Vital SignReadingTime TakenCommentsBlood Chcwrnhe145/6811 2:09 PM EST Jonqq695609/29/2019 2:09 PM ESTTemperature--Respiratory Rate--Oxygen Saturation-- Inhaled Oxygen Concentration--Gpfwsn51.9 kg (176 lb 2.4 oz)09/29/2019 2:09 PM ICLCfoihp586.2 cm (5' 7 )09/29/2019 2:09 PM ESTBody Mass Index27.5909/29/2019 2:09 PM EST Plan of Treatment Health MaintenanceDue DateLast DoneCommentsDepression Lppuzkukq05/16/1996Tobacco Mjxixfsmn07/16/1996Adult BMI Tpchukfai26/16/2002DTaP,Tdap and Td Vaccines (1 - Tdap)2002Pap Smear2004Influenza Ljzgpqp4407/24/2025 Medical Devices Not on file Insurance Care Teams Team MemberRelationshipSpecialtyStart Date Nathen Tello MD PCP - [facility]02/23/17
--- OUTSIDE RECORDS SUMMARY | 2025-10-28 08:16 | XMS_ITS | CCD ---
Author Organization [facility] CliniSyky Care Team Providers Care Vault Attendant Name Role Phone CYNDEE ., DR ZAPATA [...] Unavailable CYNDEE ., DR ZAPATA Attending Unavailable ELSINORE, DR PEPE Sheets Consulting Unavailable HOY ., DR ADAME Primary Care Unavailable CYNDEE ., DR ZAPATA Admitting Unavailable NO FAMILY, PHYSICIAN Primary Care Provider Unava ilable Karla Koehler APRN Attending Provider Karla Koehler Attending Unavailable Karla Koehler Admitting Unavailable NO FAMILY, PHYSICIAN Primary Care Unavailable Wendi Tello MD Primary Care Provider [phone] Oli Barahona MD Primary Care Provider Wendi Tello MD Primary Care Provider [phone] Wendi Tello MD Primary Care Provider [phone] ELSY GARZA Attending BENNY Mittal Attending Unavailable ELSY GARZA Attending ARLETH Abreu Attending Unavailable Allergies Allergy ClassificationReported Allergen(s)Allergy TypeDate of OnsetReaction(s) Facility (1 source)AzithromycinDrug Coldycz98-71-5105[facility] (1 source)AzithromycinDrug Wevgtoa96-39-1493BylpjdragMercer County Community Hospital Repository (11 sources)AzithromycinDrug Gjnexdu71-18-2187KN bleeding, UnknownSALT [facility] Work Phone: Medications Current Medications MedicationDrug Class(es)DatesSig (Normalized)Sig (Original)ALPRAZolam 0.25 mg oral tablet (13 sources)BenzodiazepineStart: 06-19-7524wicf 1 tablet by mouth in the morning, then take 1 tablet by mouth in the evening, then take 1 tablet by mouth at bedtimeALPRAZolam (Xanax) 0.25 MG tablet Indications: Anxiety and depression Take 1 tablet (0.25 mg) by mouth in the morning and 1 tablet (0.25 mg) in the evening and 1 tablet (0.25 mg) before bedtime. 30 tablet 09/04/2023 Wpmaei19 hr buPROPion hydrochloride 150 mg extended release oral tablet (11 sources)AminoketoneStart: 15-07-2304fzBZUEgco SR (Wellbutrin SR) 150 MG 12 hr [...] mg tablet sustained-release 12 hr (2 sources)Start: 00-08-7642mnkj 1 tablet by mouth twice dailyBupropion Hcl 150 mg tablet sustained-release 12 hr Active 150 MG PO Twice daily October 0120231124:00amdoxycycline hyclate 50 mg oral capsule (2 sources)Tetracycline-class DrugStart: 04-20-2025 End: 65-68-7995drdhnmayryq (Vibramycin) 50 MG capsule Indications: Ingrown toenail [...] 500 mg oral tablet (3 sources)Biguanide End: 85-66-7124pboLORPLF (Glucophage) 500 MG tablet 500 mg in the morning. Take with meals. 03/14/2025 Discontinued (Discontinued by another clinician) pramipexole dihydrochloride 1 mg oral tablet (16 sources)Nonergot Dopamine AgonistStart: 35-30-0305gbar 1 tablet by mouth once dailyPramipexole 1 mg tablet Active 1 MG PO Daily October 01, 2024 12:00am End: 85-90-8785tqspufeictu (Mirapex) 0.125 MG tablet 03/14/2025 Discontinued (Discontinued by another clinician) Problems Active Problems Problem ClassificationProblemDateDocumented DateEpisodic/ChronicAnxiety disorders (2 sources)Mixed anxiety and depressive disorder; Translations: [Anxiety disorder, unspecified]52-06-5749ZlrvvyvEbjedutponitb and procreative management (1 source)Presence of (intrauterine) contraceptive device; Translations: [PRESENCE IU CONTRACEPT DEVICE]Onset: 64-42-6786ZvxyisioMhumklnpkucau congenital anomalies (1 source)Unicornate uterus; 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]Onset: 04-21-2023 ChronicInflammatory diseases of female pelvic organs (1 source)Inflammatory disease of cervix uteri; Translations: [INFLAMMATORY DISEASE CERVIX UTERI]Onset: 94-81-1855KqdxplepUzfhjzeoc disorders (6 sources)Irregular menstruation, unspecified; Translations: [Dysmenorrhea, unspecified]Onset: 41-64-0965XglrtrpLnqllwgpe of unspecified nature or uncertain behavior (1 source)Neoplastic disease; Translations: [Neoplasm of unspecified behavior of bone, soft tissue, and skin]02-75-3827IqehffqoEzzsy connective tissue disease (4 sources)Pain in right foot; Translations: [Pain in right foot]03-14-2025 EpisodicOther female genital disorders (1 source)Unspecified dyspareunia; Translations: [UNSPECIFIED DYSPAREUNIA]Onset: 63-14-9885AvjsuozCcmjv hereditary and degenerative nervous system conditions (4 sources)Restless legs syndrome; Translations: [RESTLESS LEGS SYNDROME]Onset: 93-71-3857KzlweqiDmsct lower respiratory disease (2 sources)Cough; Translations: [Cough]90-16-5913EwvidqduIhayd screening for suspected conditions (not mental disorders or infectious disease) (6 sources)Encounter for screening for malignant neoplasm of cervix; Translations: [Patient encounter status]Onset: 45-83-9975HlqymrhnPhvul skin disorders (4 sources)Ingrowing toenail; Translations: [Ingrowing nail]25-43-2513Fzztdbjo Other skin disorders (1 source)Inflamed seborrheic keratosis; Translations: [Inflamed seborrheic keratosis]07-95-0499IkqammavFydgidqjm and history of mental health and substance abuse codes (1 source)Personal history of nicotine dependence; Translations: [PERSONAL HISTORY OF NICOTINE DEPEND]Onset: 52-42-3779PukdxfeeZrcslsorzxfv (1 source)Cough, unspecified; Translations: [Cough, unspecified]Onset: 17-95-4665Tmpqt infection (4 sources)Disease caused by 2019-nCoV; Translations: [COVID-19]10-01-2024 Episodic Past or Other Problems Problem ClassificationProblemDateDocumented DateEpisodic/ChronicImmunizations and screening for infectious disease (1 source)Encounter for screening for human papillomavirus (HPV); Translations: [ENC SCREENING HUMAN PAPILLOMAVIRUS]Onset: 67-43-8132KklzdqraKiado nutritional; endocrine; and metabolic disorders (1 source)Abnormal weight gain; Translations: [ABNORMAL WEIGHT GAIN]Onset: 48-60-9995UjzeknzcRsppnvh cyst (2 sources)Other ovarian cyst, left side; Translations: [Other ovarian cyst, right side]Onset: 58-02-8203AdckgbbkZgowytvv codes; unclassified (1 source)Sleep disorder, unspecified; Translations: [SLEEP DISORDER UNSPECIFIED]Onset: 78-53-3764Huwvduox Results Test NameValueInterpretationReference RangeFacilityCryotherapy, skin lesion Ordered By: Ariana Weiner on 48-38-7247IJUDBaptist Memorial Hospital for Women biopsyon 09-11-2025 Type of biopsy: tangential Informed [...] Photo taken Amount of lidocaine used: 0.5 [facility] McDowellIGP,APTIMA HPV,AGE GDLNon 22-75-4693RXY GDLN ACOG TESTINGNote.NOMS HealthcareComment on above:TESTS RESULT FLAG UNITS REF RANGE LAB Clinician Provided Cytology Information Source.............Vagina No. of containers..01 ThinPrep Vial Age Algo ACOG Valarie... 28 FLAG LEGEND: L-Low Normal,H-High Normal,LL-Alert Low,HH-Alert High <-Panic Low,>-Panic High,A-Abnormal,AA-Critical Abnormal Performed at: 01 =[address] [address] Jaqueline Vila MD, HPV APTIMANegativeNegativeNOMS HealthcareComment on above:This nucleic acid amplification test detects fourteen high- risk HPV types (16,18,31,33,35,39,45,51,52,56,58,59,66,68) without differentiation. Performed at: =[address] [id number] Mud Jack Nozzleman: Jaqueline Vila MD, Phone: [phone] Performed at: [address] [id number] Mud Jack Nozzleman: Jaqueline Vila MD, Phone: [phone] IGP, APTIMA HPV, RFX 16/18,45Note.NOMS HealthcareComment on above:TESTS RESULT FLAG UNITS REF RANGE LAB DIAGNOSIS: 02 NEGATIVE FOR INTRAEPITHELIAL LESION OR MALIGNANCY. Specimen adequacy: 02 Satisfactory for evaluation. Performed by: 02 [place], Career Professional (ASCP) . 02 Note: Note 02 The [...] High,A-Abnormal,AA-Critical Abnormal Performed at: 02 [address] [facility] [address] [address] Jaqueline Vila MD, [facility] CLINISYNCNOMS HealthcareCOVID Cepheidon 83-32-3550IUFQ-CoV-2 (COVID-19) RNA MATEO+probe Ql (Unsp spec)COVID CepheidMercer County Community HospitalLaboratory - Microbiology and Antimicrobial susceptibilityon 60-11-8355CAMU-CoV-2 (COVID- 19) RNA MATEO+probe Ql (Unsp spec)PositiveMercer County Community HospitalNo Panel Informationon 05-81-9892BCC Influenza A (PCR)NegativeMercer County Community HospitalPO Influenza B (PCR)NegativeMercer County Community HospitalX- ray reportOrdered By: Jairon Butler on 96-50-5636Rktpi reportMERCY HE[facility] ST[facility] [place] [address] XRay Report Signed Patient: Cecile Torres MR#: [id number] : 1985 Acct:[id number] Age/Sex: 38 / F ADM Date: 4 Loc: XDUCLY Room: Type: [facility] Attending Dr: Karla Koehler APRN Copies to: [...] Jairon Butler M.D.10/01/2024 12:40 PM Dictation Location: [facility]--17 Transcribed By: NISREEN 10/01/24 1240 Dictated By: Jairon Butler II, MD 10/01/24 1239 Signed By: 10/01/24 1240 [facility] Work Phone: XR chest 2V*on 00-78-6031HG chest 2V*[facility] [place] [address] [place] [address] XRay Report Signed Patient: Cecile Torres MR#: [id number] : 1985 Acct:[id number] Age/Sex: 38 / F ADM Date: 10/01/24 [facility]: Type[facility] Attending Dr: Karla Koehler PATTERN CUTTER Copies to: Karla Koehler APRN Ordering Provider: [...] Jairon Butler M.D.10/01/2024 12:40 PM Dictation Location: [facility] Transcribed By: [facility] 10/01/24 1240 Dictated By: Jairon Butler II, MD 10/01/24 1239 Signed By: 10/01/24 [facility] Physician GroupBUAdelina 10-51-5432Pdmp nitrogen [Mass/Vol]4.0 mg/dLCritically low7.0-18.0The [facility] HospitalComment on above: Performed By: #### CREA, BUN #### [facility] [address] [address] [address] Kylee Allen AUTO DIFFon 64-19-0398BHBA #0.0 103/ulNormal0.0-0.1The [facility] HospitalComment on above:Performed By: #### [id number] #### [facility] [address] [address] [address] Kylee GarnerBasophils/100 WBC (Bld)0.4 %Normal0.2-2.0The [facility] Comment on above:Performed By: #### [id number] #### [facility] [address] [address] [address] Kylee Valle #0.1 103/ulNormal0.0-0.7The [facility] HospitalComment on above: Performed By: #### [id number] #### [facility] [address] [address] [address] yKlee Ballesterososinophils/100 WBC (Bld)1.8 %Normal0.9-7.0The [facility] Comment on above:Performed By: #### [id number] #### [facility] [address] [address] [address] Kylee Ballesterosrythrocyte distribution width (RBC) [Ratio]12.9 %Xkgrjl50.0-15.0 The [facility] HospitalComment on above:Performed By: #### [id number] #### [facility] [address] [place] [address] Dr. Kylee GarnerHematocrit (Bld) [Volume fraction]28.9 %Critically low36.0-48.0 The [facility] HospitalComment on above:Performed By: #### [id number] #### [facility] [address] [place] [address] Dr. Kylee GarnerHemoglobin (Bld) [Mass/Vol]9.5 g/dLCritically low12.0-16.0The [facility] HospitalComment on above:Performed By: #### [id number] #### [facility] [address] [place] [address] Dr. Kylee Brandon #0.02 10e3/ulNormal0.00-0.03The [facility] HospitalComment on above:Performed By: #### [id number] #### [facility] [address] [place] [address] Dr. Kylee Brandon %0.3 %Normal0.0-0.5The [facility] HospitalComment on above: Performed By: #### [id number] #### [facility] [address] [place] [address] Dr. Kylee Nova #1.9 103/ulNormal1.2-3.8The [facility] HospitalComment on above:Performed By: #### [id number] #### [facility] [address] [place] [address] Dr. Kylee Mcdowellhocytes/100 WBC (Bld)23.2 %Nrwoqf69.5-60.0The [facility] HospitalComment on above:Performed By: #### [id number] #### [facility] [address] [place] [address] Dr. Kylee HoangUAL DIFF REQNONormalThe [facility] HospitalComment on above: Performed By: #### [id number] #### [facility] [address] [place] [address] Dr. Kylee Walls (RBC) [Entitic mass]30.3 jaJuhlkh23.7-34.0The [facility] HospitalComment on above:Performed By: #### [id number] #### [facility] [address] [place] [address] Dr. Kylee Gamboa (RBC) [Mass/Vol]32.9 g/vCAkvudu46.9-35.2The [facility] HospitalComment on above:Performed By: #### [id number] #### [facility] [address] [place] [address] Dr. Kylee Giordano (RBC) [Entitic vol]92.0 oGUakkeb07.0-99.0The [facility] HospitalComment on above:Performed By: #### [id number] #### [facility] [address] [place] [address] Dr. Kylee Tristan #0.6 103/ulNormal0.3-0.8The [facility] HospitalComment on above:Performed By: #### [id number] #### [facility] [address] [place] [address] Dr. Kylee Franklinocytes/100 WBC (Bld)7.3 %Normal1.7-12.0The [facility] Comment on above:Performed By: #### [id number] #### [facility] [address] [place] [address] Dr. Kylee Osborne #5.4 103/ulNormal1.4-6.5The [facility] HospitalComment on above:Performed By: #### [id number] #### [facility] [address] [place] [address] Dr. Kylee Vidalutrophils/100 WBC (Bld)67.0 %Buaywd07.0-75.0The [facility] HospitalComment on above:Performed By: #### [id number] #### [facility] [address] [place] [address] Dr. Kylee Ariaslet mean volume (Bld) [Entitic vol]10.0 fLNormal9.5-13.5The [facility] Hospitalment on above:Performed By: #### [id number] #### [facility] [address] [place] [address] Dr. Kylee GarnerPLT172 103/bzYkrekc645-456Qjh [facility] HospitalComment on above: Performed By: #### [id number] #### [facility] [address] [address] [address] Kylee GarnerRBC3.14 106/ulCritically low4.20-5.40[facility] on above:Performed By: #### [id number] #### [facility] [address] [address] [address] Kylee GarnerWBC8.0 103/ulNormal4.0-11.0The [facility] HospitalComment on above: Performed By: #### [id number] #### [facility] [address] [place] [address] Dr. Kylee GarnerCREATININEon 41-08-0514Tqefgjyruv [Mass/Vol]0.80 mg/dLNormal 0.55-1.02The [facility] on above:Performed By: #### CREA, BUN #### [facility] [address] [place] [address] Dr. Pichardo ChangEGFR-AF CAMEROONIAN>60Normal>=60The [facility] on above:Performed By: #### CREA, BUN #### [facility] [address] [place] [address] Dr. Kylee BallesterosGFR-NON AF CAMEROONIAN>60Normal>=60The [facility] on above:Performed By: #### CREA, BUN #### [facility] [address] [place] [address] Dr. Kylee GarnerPOINT OF CARE GLUCOSEon 23-99-9124Fhdewra [Mass/Vol]81 mg/dL Lxware61-681Ufh [facility] on above:Performed By: #### POCGLUC #### [facility] [address] [place] [address] Dr. Kylee GarnerPREAleksandar QUANT HCGon 44-11-4946NCT QUANT2 mIU/mLNormalMiddletown HospitalComhenry [facility] on above:Performed By: #### ESTRADI #### [facility] [address] [place] [address] Dr. Kylee Edge RANGESEE BELOWNoalThe [facility] HospitalComment on above: Result Comment: 5-50 0.2-1 WEEK 50-500 1-2 WEEKS 100-5,000 2-3 WEEKS 500-10,000 3-4 WEEKS 1,000-50,000 4-5 WEEKS 10,000-100,000 5-6 WEEKS 15,000-200,000 6-8 WEEKS 10,000-100,000 2-3 MONTHSPerformed By: #### ESTRADI #### [facility] [address] [place] [address] Dr. Kylee GarnerTYPE AND SCREENon 19-16-7233HOPB AND SCREENNegativeNormalThOhioHealth Shelby HospitalComment on above:Performed By: #### [id number] #### [facility] [address] [place] [address] Dr. Kylee GnadaraC AUTO DIFFon 60-82-0175TJIY #0.0 103/ulNormal0.0-0.1[facility] HospitalComment on above:Performed By: #### ESTRADI #### [facility] [address] [place] [address] Dr. Kylee GarnerBasophils/100 WBC (Bld)0.4 %Normal0.2-2.0[facility] Comment on above:Performed By: #### ESTRADI #### [facility] [address] [place] [address] Dr. Kylee Valle #0.1 103/ulNormal0.0-0.7ThOhioHealth Shelby HospitalComment on above: Performed By: #### ESTRADI #### [facility] [address] [place] [address] Dr. Kylee Ballesterososinophils/100 WBC (Bld)1.1 %Normal0.9-7.0[facility] Comment on above:Performed By: #### ESTRADI #### [facility] [address] [place] [address] Dr. Kylee Ballesterosrythrocyte distribution width (RBC) [Ratio]12.6 %Ydamib79.0-15.0 [facility] HospitalComment on above:Performed By: #### ESTRADI #### [facility] [address] [place] [address] Dr. Kylee Pachecoatocrit (Bld) [Volume fraction]37.4 %Edpvfu23.0-48.0The [facility] HospitalComment on above:Performed By: #### ESTRADI #### [facility] [address] [place] [address] Dr. Kylee GarnerHemoglobin (Bld) [Mass/Vol]12.9 g/wLLqzmfu39.0-16.0The [facility] HospitalComment on above:Performed By: #### ESTRADI #### [facility] [address] [place] [address] Dr. Kylee Brandon #0.02 10e3/ulNormal0.00-0.03The [facility] HospitalComment on above:Performed By: #### ESTRADI #### [facility] [address] [place] [address] Dr. Kylee Brandon %0.2 %Normal0.0-0.5The [facility] HospitalComment on above: Performed By: #### ESTRADI #### [facility] [address] [place] [address] Dr. Kylee Nova #1.7 103/ulNormal1.2-3.8The [facility] HospitalComment on above:Performed By: #### ESTRADI #### [facility] [address] [place] [address] Dr. Kylee Mcmphocytes/100 WBC (Bld)20.3 %Critically low20.5-60.0The [facility] HospitalComment on above:Performed By: #### ESTRADI #### [facility] [address] [place] [address] Dr. Kylee GarnerMANUAL DIFF REQNONormalThe [facility] HospitalComment on above: Performed By: #### ESTRADI #### [facility] [address] [place] [address] Dr. Kylee Walls (RBC) [Entitic mass]30.8 ndHusssi23.7-34.0The [facility] HospitalComment on above:Performed By: #### ESTRADI #### [facility] [address] [address] [address] Kylee GamboaHC (RBC) [Mass/Vol]34.5 g/dZPkwprh82.9-35.2The [facility] HospitalComment on above:Performed By: #### ESTRADI #### [facility] [address] [address] [address] Kylee GamboaV (RBC) [Entitic vol]89.3 kONdypkw94.0-99.0The [facility] HospitalComment on above:Performed By: #### ESTRADI #### [facility] [address] [place] [address] Dr. Kylee Tristan #0.7 103/ulNormal0.3-0.8The [facility] HospitalComment on above:Performed By: #### ESTRADI #### [facility] [address] [place] [address] Dr. Kylee Franklinocytes/100 WBC (Bld)8.3 %Normal1.7-12.0The [facility] Comment on above:Performed By: #### ESTRADI #### [facility] [address] [place] [address] Dr. Klyee Osborne #5.7 103/ulNormal1.4-6.5The [facility] HospitalComment on above:Performed By: #### ESTRADI #### [facility] [address] [place] [address] Dr. Kylee Vidalutrophils/100 WBC (Bld)69.7 %Ibpdya91.0-75.0The [facility] HospitalComment on above:Performed By: #### ESTRADI #### [facility] [address] [place] [address] Dr. Kylee Ariaslet mean volume (Bld) [Entitic vol]9.9 fLNormal9.5-13.5The [facility] HospitalComment on above:Performed By: #### ESTRADI #### [facility] [address] [place] [address] Dr. Kylee GarnerPLT229 103/anVbmcku425-903Tjt [facility] Hospitalment on above: Performed By: #### ESTRADI #### [facility] [address] [place] [address] Dr. Kylee GarnerRBC4.19 106/ulCritically low4.20-5.40The [facility] HospitalComhenry [facility] on above:Performed By: #### ESTRADI #### [facility] [address] [place] [address] Dr. Kylee GarnerWBC8.2 103/ulNormal4.0-11.0The [facility] HospitalComment on above: Performed By: #### ESTRADI #### [facility] [address] [place] [address] Dr. Kylee Guirdy PROFILEon 26-56-5985Fnwcqjd [Mass/Vol]3.9 g/dLNormal3.4-5.0 The [facility] HospitalComment on above:Performed By: #### [id number] #### [facility] [address] [place] [address] Dr. Kylee GarnerAlbumin/Globulin [Mass ratio]1.1 {ratio}NormalThe [facility] HospitalComhenry [facility] on above:Performed By: #### [id number] #### [facility] [address] [place] [address] Dr. Kylee Cardoso [Catalytic activity/Vol]62 U/SDlopcj21-141Sqs [facility] on above:Performed By: #### [id number] #### [facility] [address] [place] [address] Dr. Kylee Cooley [Catalytic activity/Vol]20 U/DHpepwq33-82Cty [facility] on above:Performed By: #### [id number] #### [facility] [address] [place] [address] Dr. Kylee Hernandez [Catalytic activity/Vol]14 U/LCritically vsy99-29Uyg [facility] on above:Performed By: #### [id number] #### [facility] [address] [place] [address] Dr. Kylee Corea, CONJUGATED0.1 mg/dLNormal0.0-0.2[facility] Comment on above:Performed By: #### [id number] #### [facility] [address] [place] [address] Dr. Kylee GarnerBilirubin [Mass/Vol]0.4 mg/dLNormal0.2-1.0[facility] Comment on above:Performed By: #### [id number] #### [facility] [address] [place] [address] Dr. Kylee GarnerGlobulin (S) [Mass/Vol]3.7 g/dLNormalThe [facility] HospitalComment on above:Performed By: #### [id number] #### [facility] [address] [place] [address] Dr. Kylee GarnerProtein [Mass/Vol]7.6 g/dLNormal6.4-8.2[facility] Comment on above:Performed By: #### [id number] #### [facility] [address] [place] [address] Dr. Kylee GarnerPROF CHEM 8 (BAS METB)on 82-64-6040Mhjud gap [Moles/Vol]13.5 mmol/LNormalMiddletown HospitalComment on above:Performed By: #### [id number] #### [facility] [address] [place] [address] Dr. Kylee GarnerCalcium [Mass/Vol]9.0 mg/dLNormal8.5-10.1[facility] Comment on above:Performed By: #### [id number] #### [facility] [address] [place] [address] Dr. Kylee GarnerChloride [Moles/Vol]104 mmol/LDxbwad79-578FhyMiddletown Hospital Comment on above:Performed By: #### [id number] #### [facility] [address] [place] [address] Dr. Kylee GarnerCO2 [Moles/Vol]25.7 mmol/MGolrfh41.0-32.0[facility] Comment on above:Performed By: #### [id number] #### [facility] [facility] [address] [address] [address] Kylee GarnerCreatinine [Mass/Vol]0.79 mg/dLNormal0.55-1.02The [facility] HospitalComment on above:Performed By: #### [id number] #### [facility] [address] [address] [address] Kylee BallesterosGFR-AF CAMEROONIAN>60Normal>=60The [facility] HospitalComment on above:Performed By: #### [id number] #### [facility] [address] [address] [address] Kylee BallesterosGFR-NON AF CAMEROONIAN>60Normal>=60The [facility] HospitalComment on above:Performed By: #### [id number] #### [facility] [address] [place] [address] Dr. Kylee GarnerGlucose [Mass/Vol]81 mg/dVDhvydc97-636Jxe [facility] Comment on above:Performed By: #### [id number] #### [facility] [address] [address] [address] Kylee GarnerPotassium [Moles/Vol]4.2 mmol/LNormal3.5-5.1The [facility] Comment on above:Performed By: #### [id number] #### [facility] [address] [place] [address] Dr. Kylee GarnerSodium [Moles/Vol]139 mmol/UYxoqym343-930Hpt [facility] Comment on above:Performed By: #### [id number] #### [facility] [address] [address] [address] Kylee GarnerUrea nitrogen [Mass/Vol]11.0 mg/dLNormal7.0-18.0The [facility] HospitalComment on above:Performed By: #### [id number] #### [facility] [address] [address] [address] Kylee GarnerUrea nitrogen/Creatinine [Mass ratio]13.9 mg/mgNormalThe [facility] HospitalComment on above:Performed By: #### [id number] #### [facility] [address] [place] [address] Dr. Kylee SeayIMEon 48-81-9332CPG Coag (PPP) [Relative time]0.94 {INR} NormalThe [facility] HospitalComment on above:Performed By: #### PTT, PT #### [facility] [address] [place] [address] Dr. Kylee Sheldon [facility] CENTERSEE BELOWCincinnati Shriners HospitalComment on above:Result Comment: DESIRED INR: 2.0 - 3.0 CONDITIONS NOT LISTED BELOW 2.5 - 3.5 FOR PROSTHETIC HEART VALVE REPLACEMENT 2.5 - 3.5 RECURRENT THROMBOSIS Performed By: #### PTT, PT #### [facility] [address] [place] [address] Dr. Kylee GarnerPT Coag (PPP) [Time]10.0 sNormal9.0-11.6The [facility] Comment on above:Performed By: #### PTT, PT #### [facility] [address] [place] [address] Dr. Kylee Scott 46-13-8445uUXQ Coag (Bld) [Time]28.2 pVolkun90.3-36.2[place] HospitalComment on above:Performed By: #### PTT, PT #### [facility] [address] [place] [address] Dr. Kylee Aden SERUMon 00-48-2281Cbeqnyvkqvegbkiqnrmlig (DHEA)141 ng/dL Joarqa65-531GnxMiddletown HospitalComment on above:Result Comment: Age 1 - [...] - 701Performed By: #### ESTRADI #### [facility] [address] [place] [address] Dr. Kylee Tenorio ACOG PANEL 2: 30 to 65on 07-15-2022..NormalThe [facility] HospitalComment on above:Result Comment: Performed at: WBPerformed By: #### [id number] #### [facility] [address] [place] [address] Dr. Kylee GarnerAge Gdln ACOG Ozrurtc19-78FtvdeiSyvCincinnati Shriners HospitalComhenry [facility] on above:Performed By: #### [id number] #### [facility] [address] [place] [address] Dr. Kylee GarnerDIAGNOSIS:CommentTrinity Health System West Campus on above: Result Comment: NEGATIVE FOR INTRAEPITHELIAL LESION OR MALIGNANCY. Performed at: WBPerformed By: #### [id number] #### [facility] [address] [place] [address] Dr. Kylee GarnerHPV AptimaNegativeNormalNegativeSelect Medical Specialty Hospital [facility] on above:Result Comment: This nucleic acid amplification test detects fourteen high-risk HPV types (16,18,31,33,35,39,45,51,52,56,58,59,66,68) without differentiation. Performed at: =GPerformed By: #### [id number] #### [facility] [address] [place] [address] Dr. Kylee GarnerMethodology:CTIMTrinity Health System West Campus on above: Result Comment: The Thin Prep(R) Sports Official was unable to read this specimen. Therefore a manual review was performed. Performed at: WBPerformed By: #### [id number] #### [facility] [address] [place] [address] Dr. Kylee GarnerNote:CommentTrinity Health System West Campus on above:Result Comment: The Pap smear is a screening test designed to aid in the detection of premalignant and malignant conditions of the uterine cervix. It is not a diagnostic procedure and should not be used as the sole means of detecting cervical cancer. Both false-positive and false-negative reports do occur. . Performed at: WBPerformed By: #### [id number] #### [facility] [address] [place] [address] Dr. Kylee GarnerPerformed by:CommentTrinity Health System West Campus on above: Result Comment: Ana Rosa Goldberg, Electrical Supervisor (ASCP) Performed at: WBPerformed By: #### [id number] #### [facility] [address] [address] [address] Kylee Andrewsimejairon adequacy:CommentNormalThe [facility] HospitalComment on above:Result Comment: Satisfactory for evaluation. Endocervical and/or squamous metaplastic cells (endocervical component) are present. Performed at: WBPerformed By: #### [id number] #### [facility] [address] [address] [address] Kylee GarnerUS PELVIS AND TRANSVAGon 88-44-8557LL PELVIS AND TRANSVAG EXAMINATION: US PELVIS AND [...] Electronically authenticated by: PEPE ROMO Date: 2022-07-13 08:15NormalMiddletown HospitalDHEA-SULFATEon 16-76-9558XCQP-Vkjvvgr051.0 ug/dLNormal 57.3-279.2The [facility] HospitalComment on above:Performed By: #### DHEASUL #### [facility] [address] [place] [address] Dr. Pichardo ChangESTRADIOLon 47-99-2191Ufiduqidn903.0 pg/mLNormalMiddletown HospitalComment on above:Result Comment: Adult Female: Follicular phase 12.5 - 166.0 Ovulation phase 85.8 - 498.0 Luteal phase 43.8 - 211.0 Postmenopausal <6.0 - 54.7 1st trimester 215.0 - >4300.0 Manpreet ECLIA methodologyPerformed By: #### ESTRADI #### [facility] [address] [place] [address] Dr. Kylee Goldman 12-83-0698GSR2.2 mIU/mLNormalMiddletown HospitalComment on above:Result Comment: Adult Female: Follicular phase 3.5 - 12.5 Ovulation phase 4.7 - 21.5 Luteal phase 1.7 - 7.7 Postmenopausal 25.8 - 134.8Performed By: #### LBCFSH #### [facility] [address] [place] [address] Dr. Kylee GarnerLUTEINIZING HORMONE (LH)on 78-39-1181DR3.6 mIU/mLNormalMiddletown HospitalComment on above:Result Comment: Adult Female: Follicular phase 2.4 - 12.6 Ovulation phase 14.0 - 95.6 Luteal phase 1.0 - 11.4 Postmenopausal 7.7 - 58.5Performed By: #### ESTRADI #### [facility] [address] [place] [address] Dr. Kylee GarnerPROGESTERONEon 12-07-0226Ulboozedlhbn8.2 ng/mLNMercy Health Kings Mills HospitalComment on above:Result Comment: Follicular phase 0.1 - 0.9 Luteal phase 1.8 - 23.9 Ovulation phase 0.1 - 12.0 First trimester 11.0 - 44.3 Second trimester 25.4 - 83.3 Third trimester 58.7 - 214.0 Postmenopausal 0.0 - 0.1Performed By: #### ESTRADI #### [facility] [address] [place] [address] Dr. Kylee GarnerCALCIUMon 86-03-6505Uwvkytv [Mass/Vol]9.0 mg/dLNormal8.5-10.1The [facility] HospitalComment on above:Performed By: #### [id number] #### [facility] [address] [place] [address] Dr. Kylee GarnerCBC AUTO DIFFon 15-17-3687BHFE #0.0 103/ulNormal0.0-0.1The [facility] HospitalComment on above:Performed By: #### ESTRADI #### [facility] [address] [place] [address] Dr. Kylee GarnerBasophils/100 WBC (Bld)0.4 %Normal0.2-2.0The [facility] Comment on above:Performed By: #### ESTRADI #### [facility] [address] [place] [address] Dr. Kylee Valle #0.1 103/ulNormal0.0-0.7The [facility] HospitalComment on above: Performed By: #### ESTRADI #### [facility] [address] [place] [address] Dr. Kylee Ballesterososinophils/100 WBC (Bld)0.9 %Normal0.9-7.0The [facility] Comment on above:Performed By: #### ESTRADI #### [facility] [address] [place] [address] Dr. Kylee Ballesterosrythrocyte distribution width (RBC) [Ratio]12.7 %Yrhvel35.0-15.0 The [facility] HospitalComment on above:Performed By: #### ESTRADI #### [facility] [address] [place] [address] Dr. Kylee GarnerHematocrit (Bld) [Volume fraction]39.6 %Thdlsv32.0-48.0The [facility] HospitalComment on above:Performed By: #### ESTRADI #### [facility] [address] [place] [address] Dr. Kylee GarnerHemoglobin (Bld) [Mass/Vol]13.2 g/tZWegptg32.0-16.0The [facility] HospitalComment on above:Performed By: #### ESTRADI #### [facility] [address] [place] [address] Dr. Kylee Brandon #0.03 10e3/ulNormal0.00-0.03The [facility] HospitalComment on above:Performed By: #### ESTRADI #### [facility] [address] [place] [address] Dr. Kylee Brandon %0.3 %Normal0.0-0.5The [facility] HospitalComment on above: Performed By: #### ESTRADI #### [facility] [address] [place] [address] Dr. Kylee Nova #2.5 103/ulNormal1.2-3.8The [facility] HospitalComment on above:Performed By: #### ESTRADI #### [facility] [address] [place] [address] Dr. Kylee Mcdowellhocytes/100 WBC (Bld)25.3 %Pcrsvo51.5-60.0The [facility] HospitalComhenry [facility] on above:Performed By: #### ESTRADI #### [facility] [address] [place] [address] Dr. Kylee HoangUAL DIFF REQNONormalThe [facility] HospitalComment on above: Performed By: #### ESTRADI #### [facility] [address] [place] [address] Dr. Kylee Gamboa (RBC) [Entitic mass]29.6 uuKzvpzs98.7-34.0The [facility] HospitalComhenry [facility] on above:Performed By: #### ESTRADI #### [facility] [address] [place] [address] Dr. Kylee Gamboa (RBC) [Mass/Vol]33.3 g/yHGfzyxx61.9-35.2The [facility] HospitalComhenry [facility] on above:Performed By: #### ESTRADI #### [facility] [address] [place] [address] Dr. Kylee Gamboa (RBC) [Entitic vol]88.8 gTEozppy21.0-99.0The [facility] HospitalComhenry [facility] on above:Performed By: #### ESTRADI #### [facility] [address] [place] [address] Dr. Kylee Tristan #0.8 103/ulNormal0.3-0.8The [facility] HospitalComment on above:Performed By: #### ESTRADI #### [facility] [address] [address] [address] Kylee Franklinocytes/100 WBC (Bld)8.6 %Normal1.7-12.0The [facility] Comment on above:Performed By: #### ESTRADI #### [facility] [address] [place] [address] Dr. Kylee VidalUT #6.3 103/ulNormal1.4-6.5The [facility] HospitalComment on above:Performed By: #### ESTRADI #### [facility] [address] [place] [address] Dr. Kylee Vidalutrophils/100 WBC (Bld)64.5 %Ukohgb41.0-75.0The [facility] HospitalComment on above:Performed By: #### ESTRADI #### [facility] [address] [place] [address] Dr. Kylee GarnerPlatelet mean volume (Bld) [Entitic vol]10.0 fLNormal9.5-13.5The [facility] HospitalComment on above:Performed By: #### ESTRADI #### [facility] [address] [place] [address] Dr. Kylee GarnerPLT271 103/fyUdgdxs074-452Xzo [facility] HospitalComment on above: Performed By: #### ESTRADI #### [facility] [address] [place] [address] Dr. Kylee GarnerRBC4.46 106/ulNormal4.20-5.40The [facility] HospitalComment on above:Performed By: #### ESTRADI #### [facility] [address] [place] [address] Dr. Kylee GarnerWBC9.8 103/ulNormal4.0-11.0The [facility] HospitalComhenry [facility] on above: Performed By: #### ESTRADI #### [facility] [address] [place] [address] Dr. Pichardo ChangELECTROLYTESon 61-62-4710Wjird gap [Moles/Vol]7.9 mmol/LNormalThe [facility] HospitalComment on above:Performed By: #### [id number] #### [facility] [address] [address] [address] Kylee GarnerChloride [Moles/Vol]101 mmol/NPligrx41-863Vre [facility] Comment on above:Performed By: #### [id number] #### [facility] [address] [address] [address] Kylee GarnerCO2 [Moles/Vol]28.8 mmol/KOtaxfd13.0-32.0The [facility] Comment on above:Performed By: #### [id number] #### [facility] [address] [address] [address] Kylee GarnerPotassium [Moles/Vol]3.7 mmol/LNormal3.5-5.1The [facility] Comment on above:Performed By: #### [id number] #### [facility] [address] [address] [address] Kylee GarnerSodium [Moles/Vol]134 mmol/LCritically ajb209-116Jbo [facility] HospitalComment on above:Performed By: #### [id number] #### [facility] [address] [address] [address] Kylee GarnerGLYCOHEMOGLOBIN A1Con 55-92-3980UBQ RECOMMENDATIONSEE BELOWNormal [facility] HospitalComment on above:Result Comment: ADA RECOMMENDED LIMIT 4.0 - 6.0 ADA THERAPEUTIC TARGET < 7.0 ACTION SUGGESTED > 7.0Performed By: #### [id number] #### [facility] [address] [address] [address] Kylee GarnerGlucose [Mass/Vol]97 mg/dLNormalThOhioHealth Shelby HospitalComment on above:Performed By: #### [id number] #### [facility] [address] [address] [address] Kylee GarnerHbA1c (Bld) [Mass fraction]5.0 %Normal4.5-6.2[place] HospitalComment on above:Performed By: #### [id number] #### [facility] [address] [address] [address] Kylee GarnerMAGNESIUMon 25-72-1244Satvabzdy [Mass/Vol]2.0 mg/dLNormal1.8-2.4 The [facility] HospitalComment on above:Performed By: #### CA, TSH, MG, ELEC #### [facility] [address] [address] [address] Kylee AdornoHojairon 58-70-4162YHJ9.725 uIU/mLNormal0.358-3.740The [facility] HospitalComment on above:Performed By: #### [id number] #### [facility] [address] [address] [address] Kylee Garner Vital Signs Date TimeVital SignValuePerforming TbicvekpmJygnzmtn69-89-1099 15:24-0400Body mass index (BMI) [Ratio]23.96 kg/e5TgutzMetrekare Work Phone: [phone] CenterEuaioqkzld22-32-3954 15:24-0400Body kthynz19.4 kg BennyMetrekare Work Phone: [facility] CenterQflqczhucg88-81-6480 15:24-0400Diastolic blood cxgylmnm90 mm[Hg][employer] Work Phone: [facility] CenterXtjrxtgscz73-27-7678 15:24-0400Systolic blood eqopfjin401 mm[Hg][employer] Work Phone: [facility] CenterIytpjdfctp76-51-8998 11:53-0500Body mspysk518.18 cmPHYSICIAN [facility]11-09-2024 11:53-0500Body mass index (BMI) [Ratio]23.6 kg/g9IDDPBNIEU [facility]11-09-2024 11:53-0500Body .4 [degF]PHYSICIAN NO [facility]11-09-2024 11:53-0500Body bpawum04.26 kg PHYSICIAN NO [facility]11-09-2024 11:53-0500 Diastolic blood zmlaycep84 mm[Hg]PHYSICIAN NO [facility]11-09-2024 11:53-0500Heart wtso993 /minPHYSICIAN [facility]11-09-2024 11:53-0500Respiratory rate16 /minPHYSICIAN [facility]11-09-2024 11:53-6691NaV2% (BldA) [Mass fraction]94 %PHYSICIAN NO [facility]11-09-2024 11:53-0500Systolic blood cssvozbi635 mm[Hg]PHYSICIAN NO [facility] Encounters Encounter DateEncounter TypeCare ProviderFacilityStart: 09-11-2025 End: 77-85-5290Hozjvz flowsNinoska Hernadez PA Work Phone: no [facility]atologyStart: 09-11-2025 End: 39-55-4268Bxlxlg flowsheetArleth [facility] PA Work Phone: noDSTLD Stefanie DermatologyStart: 09-11-2025 End: 75-31-8464Gkubslo encounter procedureRyrich Atulnorth al[facility] center DARIN Work Phone: noDSTLD [facility]ie DermatologyComment on above:Neoplasm of unspecified behavior of bone, soft tissue, and skin (Primary Dx); Inflamed seborrheic keratosisStart: 09-11-2025 End: 20-45-5542nkqrychbpkWBBXJ NORTHEIMNot AvailableStart: 04-20-2025 End: 23-48-7768Qarjpz flowsheetMokaya Spicer-Beran DPM Work Phone: noms [facility] PODIATRYStart: 04-20-2025 End: 77-43-5120Cypgim flowsheetMorgan Radha-Beran DPM Work Phone: noms [facility] PODIATRYStart: 04-20-2025 End: 00-67-6695Jodjoy outpatient visit 25 minutesMorbria BlackmonLean-Beran DPM Work Phone: noms [facility] PODIATRYComment on above:Ingrown toenail (Primary Dx); Right foot painStart: 04-20-2025 End: 46-22-6180uxapbpukmiMEBTJL RADHA-BERANNot AvailableStart: 03-14-2025 End: 61-40-1243Cuznvjw encounter procedureCorey Cyndee DO Work Phone: noms HealthcareStart: 03-14-2025 End: 36-16-3720Ibxcdlzy preventive med est patient 40-64yrsCorey Cyndee DO Work Phone: noms BCP OBComment on above:Well woman exam with routine gynecological exam; Encounter for screening mammogram for malignant neoplasm of breast; Anxiety and depression ([facility])Start: 03-14-2025 End: 16-45-1460zopmfewtjdMOZSC FAZIONot AvailableStart: 03-14-2025 End: 90-47-5035Absfdu flowsheetMorgan Radha-Beran DPM Work Phone: noms [facility] PODIATRYStart: 03-14-2025 End: 58-85-8229Eyllnt flowsheetMorgan Radha-Beran DPM Work Phone: noms [facility] PODIATRYStart: 03-14-2025 End: 59-68-5976Vrevvotky Result EncounterCorey Cyndee DO Work Phone: noms External Department UnsolicitedStart: 03-14-2025 End: 31-72-1184Qstwqv outpatient new 30 minutesMorgan Radha-Beran DPM Work Phone: noms [facility] PODIATRYComment on above:Ingrown toenail (Primary Dx); Right foot painStart: 03-14-2025 End: 05-55-0882ruivohjlqhEUDQBW RADHA-BERANNot AvailableStart: 10-01-2024 End: 94-66-3585qhgscczgkvGGQTTDYTV NO [facility] Work Phone: Start: 10-01-2024 End: 66-90-6229Hchxcet encounter procedurePHYSICIAN NO [facility] Mike Work Phone: Start: 93-43-4649Mecltdwuy for preprocedural laboratory examinationDR BENNY CYNDEE .[facility]Start: 03-20-2023 End: 85-97-7824sguhsrhfpaOI BENNY CYNDEE .Facility:Y9Vlqmv: 03-17-2023 End: 55-25-3554kggrehoiuxTB BENNY CYNDEE .Facility:J0Dnwbc: 03-17-2023 End: 49-78-0614Jlffgtkkr for preprocedural laboratory examinationDR BENNY CYNDEE .Facility:R9Ilybp: 03-04-2023 End: 25-95-7019qjlyvstzstRR WENDI HOY .Facility:J6Uykwq: 78-29-5963Wdxrvdhdm for other preprocedural examinationDR BENNY CYNDEE .[facility] HospitalStart: 02-24-2023 End: 72-92-1780knenjlmfisDR BENNY CYNDEE .Facility:T8Pgzfm: 02-24-2023 End: 80-73-4743Esarzvtmc for other preprocedural examinationDR BENNY CYNDEE . Facility:C7Bvanp: 07-12-2022 End: 87-12-6091vywgmyqufxUY BENNY CYNDEE .Facility:M4Vcpjs: 07-10-2022 End: 37-07-1931tcypxrrspfRV BENNY CYNDEE .Facility:N6Xqtta: 07-09-2022 End: 89-73-5881ghoxozurmjZS BENNY CYNDEE .Facility:H1 Procedures DateProcedureProcedure DetailPerforming ClinicianStart: 63-74-0809ZMKU / NAIL BIOPSYRylee [facility] PA Work Phone: Start: 57-49-2666FWSONTJGBMT SKIN LESIONRylee [facility] PA Work Phone: Start: 15-87-1169QML,APTIMA HPV,AGE GDLNCorey Cyndee DO Work Phone: Start: 75-58-0429Qqosq chest X-rayPHYSICIAN NO FAMILY Plan of Treatment DateCare ActivityDetailAuthorStart: 09-11-2025 End: 23-50-3222Wfuedot encounter pjxjaozgw48/20/2025 10:30 AM EDT Office Visit [facility] [address] [place], [id number] Arleth Tristan PA [address] [place] [address] Kimmy Watts DermatologyComment on above:ArrivedStart: 04-20-2025 End: 44-91-3483Nlsdqzl encounter tnjfumcvu30/29/2025 11:30 AM EDT Office Visit [facility] [address] [place] [phone] Elsy Garza, DPM [address] [place] [address] ArrivedKAI [facility] PODIATRYComment on above: ArrivedStart: 03-28-2025 End: 41-94-8189Vzsbpwq encounter yojhslomz76/06/2025 3:45 PM EDT Office Visit [facility] [address] [place] [phone] Elsy Garza, DPM [address] [place] [address] NOMMira SWS PODIATRYStart: 03-14-2025 End: 08-58-2606IJ Breast - bilateral ScreeningBilateral screening mammogram Imaging Routine Encounter for screening mammogram for malignant neoplasm of breast Expected: 03/14/2025 (Approximate), Expires: 05/14/2026[facility] Work Phone: comment on above:Expected: 03/14/2025 (Approximate), Expires: 05/14/2026Start: 03-14-2025 End: 39-76-0515Iccjfme encounter procedureNOMS [facility] PODIATRYComment on above: Ingrown toenail (Primary Dx)Dermatopathology examDermatopathology exam Pathology and Cytology Timed Neoplasm of unspecified behavior of bone, soft tissue, and skin Release Upon Ordering for 1 Occurrences starting 09/11/2025NOTN Ygle Work Phone: comment on above:Release Upon Ordering for 1 Occurrences starting 09/11/2025THIN PREP TIS PAP AND HR HPV DNATHIN PREP TIS PAP AND HR HPV DNA Pathology and Cytology Routine Well woman exam with routine gynecological exam Ordered: 03/14/2025[facility] CenterComment on above:Ordered: 03/14/2025XR Chest 2 [facility] Payers DatePayer CategoryPayerPolicy [id number] Cross Blue ShieldBCBS Member Subscriber Plan / Payer (Effective 2022-Present) Name: Cecile Torres Relation to Subscriber: Self Name: Cecile Torres PayerID: Not on file Type: Not on file Address: [facility] [address] [place] [id number] [id number] 2..1.239704.3.57[id number] 2..1.405228.3.57[id number] 2..1.495639.3.57[id number] 2..1.720005.3.57[id number] 2..1.974900.3.57[id number] 2.0.1.580732.3.57[id number] 2..840.1.033659.3.57[id number] 2.16.840.1.704960.3.57[id number] 2..840.1.666013.3.57[id number] 2..840.1.792071.3.57[id number] 2.16.840.1.152177.3.579.2.[id number] 2.16.840.1.145912.3.579.2.531 Social History DateTypeDetailFacilityStart: 62-86-1085Hbchyob smoking status NHISNever smoked tobacco (finding)[facility]-2024 End: 62-01-7250CzaNckbqt (finding)[facility] Hospitalt[facility]: 17-30-2561Ggm Assigned At BirthFeHocking Valley Community Hospitaltart: 51-62-3769Frwrjgr smoking status NHISEx-smokerNOMS HealthcareHistory of tobacco useCurrent smokerNOMS HealthcareHistory of tobacco useCigarette SmokerNOMS HealthcareStart: 08-40-7430Ioomako use and exposureSmokeless tobacco non-user [facility] HealthcareStart: 12-14-2023 End: 40-89-7042Gcdkpqhmo beverage intakeCurrent drinker of alcohol (finding)[facility] HealthcareStart: 12-14-2023 End: 98-93-2626Yeplxqh of Social functionNOMS HealthcareStart: 12-14-2023 End: 19-92-8290Enqqoew use panelNOMS HealthcareStart: 45-72-9385Nndplwk Comment occasionalNOMS HealthcareStart: 06-63-8757Mrpgbb identityIdentifies as female gender (finding)[facility] CenterStart: 92-95-1706Lfqwlq orientationHeterosexual (finding)[facility] CenterStart: 29-57-4824KklUbbaeeNNSCRoper [facility] Clinical Notes 02-24-2023 to 09-11-2025 Note Date & JmqkXgdoAsjvdgwl40-17-3647 History of Present illness Narrative* DARIN Saeed [...] Neck, Left Parotid Area, Left Submandibular Area [place] and brown stuck on verrucous scaly papule [...] limited to risks of scarring, darker or junior systems analyst pigmentary changes, recurrence, incomplete removal and infection. [...] for any new/changing lesions documented in this encounterBoone Hospital CenterRgqtkrrsbd85-98-0809 History of Present illness Narrative* Elsy Garza [...] Medical History: Diagnosis Date BMI 28.0-28.9,adult Depression ([facility]) Encounter for insertion of Mirena IUD Irregular [...] weeks. Elsy Garza DPM documented in this [facility]05-29-2025 Instructions* Patient Instructions* Elsy Garza DPM - 04/20/2025 11:30 AM EDT Continue epsom salt soak for next 48-72 hours No peroxide or antibiotic ointment at this time Leave open to air at night Can cover with bandage when in shoe gear No swimming in pool or craig until drainage stops from operative site documented in this [facility]04-22-2025 History of Present illness Narrative* Carmen Son LPN - 03/14/2025 3:00 PM EDT Reason for Appointment: Patient ID: Bryanna Torres is a 39 y.o. female who presents for [facility] Women Visit Patient presents today for Annual [...] Medical History: Diagnosis Date BMI 28.0-28.9,adult Depression (CMS/[facility]) Encounter for insertion of Mirena IUD Irregular [...] nursing note reviewed. Exam conducted with a cogeneration operator present. Vitals: Estimated body mass index is [...] Bilateral screening mammogram 3. Anxiety and depression ([facility]) F41.9 F32.A Annual: Patient presents today for [...] of: Benny Cotter DO documented in this encounterBoone Hospital CenterThhnbaxhyf99-62-8255 History of Present illness Narrative* Elsy Garza DPM - 03/14/2025 8:30 AM EDT [facility] VISIT CC: Right great toe pain HPI:Cecile Torres is a 39 y.o. female who presents with complaint of right great toe pain of the right foot. Patient states that pain has been present for a few weeks, states she used to see an PUBLICATIONS DESIGNER who performed a slant back to the [...] Medical History: Diagnosis Date BMI 28.0-28.9,adult Depression ([facility]) Encounter for insertion of Mirena IUD Irregular [...] Homegoing instructions were dispensed, including office and epic professional contact numbers. documented in this [facility]04-22-2025 Instructions* Patient Instructions* Elsy Garza DPM [...] please call the office. documented in this [facility]11-09-2024 Evaluation note* Diagnosis Onset Date Resolution Status Admit Date COVID-19 acuteNovember 2023 11:48am [facility] Work Phone: [phone]) 946-631104-28-2023 NoteOPERATIVE NOTE OPERATION DATE: 03/20/2023 PROCEDURE: Robotic assisted laparoscopic hysterectomy with bilateral salpingectomy with cystoscopy. PREOPERATIVE DIAGNOSIS: Pelvic pain, abnormal bleeding. POSTOPERATIVE DIAGNOSIS: Pelvic pain, abnormal bleeding. ANESTHESIA: General. SURGEON: Benny Cotter D.O. SENIOR SECURITY ENGINEER: NATHANIEL Huff URINE OUTPUT: Yellow and clear. [...] Anesthesia first. Patient tolerated procedure well.[facility] HospitalOpygyvvl28-00-3141 NoteOPERATIVE NOTE OP Note OPERATION DATE: 03/20/2023 ADDENDUM: Please note that patient had IUD removal as part of the hysterectomy. It was left inside the patient's uterus and was removed along with the uterus. 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 TECHNIQUE: After obtaining patient consent a methods analyst data processing image was obtained followed by injection of [...] by: EULA WINSTON Date: 2023-02-24 09:33[facility] HospitalEvaluation note* Diagnosis Onset Date Resolution Status Admit Date COVID-19 acuteNovember 2023 11:48am [facility] Work Phone: Evaluation note* Diagnosis Ingrown toenail- Primary Ingrowing nail Right foot pain Pain in soft tissues of limb documented in this encounter [facility] HealthcareEvaluation note* Diagnosis Well woman exam with routine gynecological exam Routine gynecological examination Encounter for screening mammogram for malignant neoplasm of breast Anxiety and depression (CMS/HCC) documented in this encounter [facility] HealthcareEvaluation [facility]* Diagnosis Ingrown toenail- Primary Ingrowing nail Right foot pain Pain in soft tissues of limb [facility]* Diagnosis Neoplasm of unspecified [...] content) DATE CREATED AUTHOR 05/01/2023 [facility] DATE CREATED AUTHOR AUTHOR'S ORGANIZ ATION 10/13/2024 [facility] DATE CREATED AUTHOR AUTHOR'S ORGANIZ ATION 09/11/2025 [facility] EPIC Care Teams (unrecognized sec [...] MemberRelationshipSpecialtyStart DateEnd Date Wendi Tello MD [address] [place] [address] PCP - GeneralFamily Medicine03/14/25Team MemberRelationshipSpecialtyStart DateEnd Date Wendi Tello MD [address] [place] [address] PCP - GeneralFamily Medicine03/14/25Team MemberRelationshipSpecialtyStart DateEnd Date Wendi Tello MD [address] [place] [address] PCP - GeneralFamily Medicine03/14/25Team MemberRelationshipSpecialtyStart DateEnd Date Oli Barahona MD [address] [place] [address] PCP - GeneralInternal Medicine04/19/25Team MemberRelationshipSpecialtyStart Date End Date Wendi Tello MD [address] [place] [address] PCP - GeneralFamily Medicine04/20/25Team MemberRelationshipSpecialtyStart DateEnd Date Wendi Tello MD [address] [place] [address] [facility] - [facility]04/20/25 Goals (unrecognized section and content) [...] BE BASED ON THE PRIMARY CLINICAL RECORDS. [facility] [employer] [facility]. provides no warranty or guarantee of the accuracy or completeness of information in this document.
--- OUTSIDE RECORDS SUMMARY | 2025-10-28 08:16 | XMS_ITS | Clinical Summary ---
Author Organization [facility] Healthcare Address [address] [place] [address] Care Team Providers Care Clinical Informatics Manager Name Role Phone Nathen Tello MD Primary Care Provider [phone] Allergies Active AllergyReactionsCriticalityNoted DateCommentsAzithromycinGI bleeding, Hpetrpp1904/14/2023 Medications MedicationSigDispense QuantityRefillsLast FilledStart DateEnd DateStatus pramipexole [...] Problems No known active problems Encounters DateTypeDepartmentCare YcmlGqywzoaiggl13/24/2025Results Follow-Up [facility] [address] [place] [address] Laina Tristan PA Dermatopathology exam09/11/2025 10:30 AM EDTOffice Visit [facility] [address] [place] [address] Laina Tristan PA Neoplasm of unspecified behavior of bone, soft tissue, and skin (Primary Dx); Inflamed seborrheic woyclbmfv88/20/2025amboo flowsheet [facility] [address] [place] [address] Laina Tristan PA 09/11/2025Travelfrom Last 3 Months Family History Medical HistoryRelationNameCommentsNo Known ProblemsDaughterBrilynnBreast cancer OtherGrandmotherCoronary artery diseaseOtherGrandfatherNo Known ProblemsSon 1 BennettNo Known ProblemsSon 2BrextonRelationNameStatusCommentsBrotherAlive DaughterBrilynnAliveFatherAliveMotherAliveOtherSisterAliveSon 1BennettAliveSon 2 BrextonAlive Social History Tobacco UseTypesPacks/DayYears UsedDateSmoking Tobacco: FormerCigarettes Smokeless Tobacco: Never Tobacco Cessation:Counseling Given: Not Answered Alcohol UseStandard Drinks/WeekCommentsYes0 (1 standard drink = 0.6 oz pure alcohol)occasionalCommentsNoSex and Gender InformationValueDate Recorded Sex Assigned at ZxmflXypeba11/23/2023 11:07 AM EDTLegal XruLxoubd87/15/2023 11:34 PM EDTGender WirewmdeKzcehx36/23/2023 11:07 AM EDTSexual Orientation Ncgvyfto01/23/2023 11:07 AM EDT Last Filed Vital Signs Vital SignReadingTime TakenCommentsBlood Foqbsgvn143/7004 3:24 PM EDT Pulse--Temperature--Respiratory Rate--Oxygen Saturation--Inhaled Oxygen Concentration--Tpdeaz75.4 kg (153 lb)03/14/2025 3:24 PM OTLHxdehc416.2 cm (5' 7 )07/14/2023 11:47 AM EDTBody Mass Index23.9607/14/2023 11:47 AM EDT Plan of Treatment Not on file Procedures Procedure NamePriorityDate/TimeAssociated DiagnosisCommentsSKIN / NAIL BIOPSY Qpiqjjt0209/11/2025 10:40 AM EDT Neoplasm of unspecified behavior of bone, soft tissue, and skin CRYOTHERAPY SKIN TKMFYEElojogs95/20/2025 10:38 AM EDT Inflamed seborrheic keratosis DERMATOPATHOLOGY NYACNqmvjts72/20/2025 12:00 AM EDT Neoplasm of unspecified behavior of bone, soft tissue, and skin from Last 3 Months Results * Lesion [...] lidocaine used: 0.5 cc Authorizing ProviderResult TypeResult [facility] PROCEDURE ORDERABLESFinal Result * Cryotherapy, skin lesion (09/11/2025 10:38 AM EDT) Narrative Authorizing ProviderResult TypeResult [facility] PROCEDURE ORDERABLESFinal Result * Dermatopathology exam (09/11/2025 12:00 AM EDT)ComponentValueRef RangeTest MethodAnalysis TimePerformed AtPathologist SignatureSPECIMEN TYPE SPECIMEN: RIGHT ANTERIOR LOBULE TAY [id number] CodeD23.20[facility]UR[facility]A DIAGNOSTICSPROTOCOLF - FLATAURORA DIAGNOSTICSFinal Diagnosis INTRADERMAL NEVUS.[facility] DIAGNOSTICSGross TextAURORA DIAGNOSTICSMicroscopic DescriptionMicroscopic examination performed.TAY [id number]*1 [facility]AGNOSTICSSpecimen (Source)Anatomical Location / LateralityCollection Method / VolumeCollection TimeReceived TimeSkinTopography unknown / Unknown 09/11/2025 10:40 AM EDTComment:Differential Diagnosis: Inflamed IDN Check Margins: No Size of lesion: 0.5 x 0.5 cm Diagnosis: (D49.2) Neoplasm of unspecified behavior of bone, soft tissue, and skin Plan: Lesion biopsy Narrative Authorizing ProviderResult TypeResult StatusRyHouston Methodist [facility] PATHOLOGY ORDERABLESFinal ResultPerforming OrganizationAddressCi/State/ZIP CodePhone Number [facility] from Last 3 Months Insurance Care Teams Team MemberRelationshipSpecialtyStart Date Nathen Tello MD [address] [place] [address] PCP - GeneralFamily Medicine04/20/25
[2025-10-28 08:29] LABS: Hematocrit 37.5 % (36.0-48.0); Hemoglobin 12.5 g/dL (12.0-16.0); Immature Granulocytes Abs Auto 0.01 10^3/uL (0.00-0.03); Immature Granulocytes Pct Auto 0.2 % (0.0-0.5); Lymphocytes Absolute Auto 2.2 10^3/uL (1.2-3.8); Mean Corpuscular HGB Conc 33.3 g/dL (29.9-35.2); Mean Corpuscular Hemoglobin 30.5 pg (26.7-34.0); Mean Corpuscular Volume 91.5 fL (81.0-99.0); Platelet Count 259 10^3/uL (150-450); Red Blood Count 4.10 10^6/uL (4.20-5.40); White Blood Count 6.6 10^3/uL (4.0-11.0)
[2025-10-28 08:52] LABS: Alanine Aminotransferase 22 U/L (14-59); Albumin Globulin Ratio 1.2; Albumin Level 4.0 g/dL (3.4-5.0); Alkaline Phosphatase 64 U/L (46-116); Anion Gap 12.2; Aspartate Amino Transferase 16 U/L (15-37); Blood Urea Nitrogen 14.0 mg/dL (7.0-18.0); Calcium 8.9 mg/dL (8.5-10.1); Carbon Dioxide 28.1 mmol/L (21.0-32.0); Chloride 107 mmol/L (98-107); Cholesterol 205 mg/dL (<=200); Estimated GFR (African America >60 (>=60 mL/min/1.73m^2); Estimated GFR (Non-African Ame 60 (>=60 mL/min/1.73m^2); Free T3 2.37 pg/mL (2.18-3.98); Globulin 3.4 g/dL; Glucose 85 mg/dL (74-106); HDL Cholesterol 78 mg/dL (40-60); Potassium 4.3 mmol/L (3.5-5.1); Sodium 143 mmol/L (136-145); Thyroid Stimulating Hormone 1.783 uIU/mL (0.358-3.740); Total Protein 7.4 g/dL (6.4-8.2); Triglycerides 56 mg/dL (<=150); VLDL CHOLESTEROL 11.2 mg/dL
[2025-10-28 09:39] LABS: Iron 74.0 ug/dL (50.0-170.0)
== END 2025-10-28 08:14 | disposition home or self-care (01) ==
LOC: LAB 08:14
PROVIDERS: PCP Family Medicine; Visit Provider Family Medicine
DX: Z00.00 Encounter for general adult medical examination without abnormal findings (principal)
CPT/HCPCS: 36415; 80053; 80061; 83036; 83525; 83540; 84436; 84443; 84481; 85025